=== PATIENT | female | born 1950 | race Caucasian/White ===

== ENCOUNTER 2019-04-15 11:28 | Observation (INO) ==
[2019-04-15] MEDS ORDERED: Aspirin 81 MG TAB.CHEW PO ONE (11:57)
--- NOTE | 2019-04-15 12:04 | Emergency Department Note ---
Disposition Clinical Impression: Pulmonary nodule, ST segment changes on electrocardiogram Chest pain Qualifiers: Chest pain type: unspecified Qualified Code(s): R07.9 - Chest pain, unspecified Disposition: Admitted As Inpatient Condition: Good Time of Disposition: 16:01 Chest Pain HPI - General Chief Complaint: ED Chest Pain Stated Complaint: CP sent by Dr. Beltran Time Seen by Provider: 04/15/19 11:37 Source: patient Mode of arrival: wheelchair Limitations: no limitations Vital Signs Reviewed: Yes Nursing Notes Reviewed: Yes - History of Present Illness HPI Narrative: Patient is a 68-year-old female with a past medical history of transverse myelitis/paraplegia who presents with chest pain for the past several weeks. She was seen by her primary care provider who noted that she had an abnormal EKG and was referred to Dr. Beltran die maker. She was informed by Dr. Beltran due to her symptoms, that she should come to the ER. Patient describes her chest pain as the left side of her chest, substernal, radiates up to her jaw. She denies any nausea, vomiting, fevers, chills. She denies any syncope or diaphoresis. Pain does not appear to worsen with deep breaths or with exertion. She has had pain sitting watching TV at rest. She has never had a heart attack in the past. She does have remote family members with history of heart attacks. She does not smoke, drink alcohol, or use recreational drugs. Severity scale (1-10): 4 - Related Data Home Medications Medication Instructions Recorded Confirmed Baclofen [Lioresal] 10 mg PO TID 09/27/15 04/15/19 Gabapentin [Neurontin] 600 mg PO TID 09/27/15 04/15/19 Ibuprofen 600 mg PO TID 09/27/15 04/15/19 Oxybutynin Chloride [Ditropan Xl] 5 mg PO TID 09/27/15 04/15/19 diazePAM [Valium] 5 mg PO TID 09/27/15 04/15/19 Ergocalciferol (VITAMIN D2) 50,000 units PO DAILY 04/15/19 04/15/19 Hydrochlorothiazide 12.5 mg PO DAILY 04/15/19 04/15/19 [place] 3 500 Softgel 1,000 mg PO DAILY 04/15/19 04/15/19 Allergies Allergy/AdvReac Type Severity Reaction Status Date / Time cephalexin [From Keflex] Allergy Hives Verified 04/04/15 16:45 All systems ED: reviewed and negative except as stated. Review of Systems: As Per HPI Constitutional: Denies: fever, chills, weakness Eyes: Denies: eye pain, eye discharge ENT ED: Denies: ear pain, throat pain, dental pain Cardiovascular: Reports: chest pain. Denies: palpitations, dyspnea on exertion Respiratory: Denies: cough, dyspnea, wheezes Gastrointestinal: Reports: abdominal pain. Denies: nausea, vomiting Genitourinary: Denies: urgency, dysuria, frequency Musculoskeletal: Denies: back pain, neck pain, joint swelling Integumentary: Denies: rash, abrasion, lesions Neurological: Denies: headache, weakness, numbness Psychiatric: Denies: anxiety, depression, suicidal thoughts Endocrine: Reports: fatigue. Denies: heat or cold intolerance, polydipsia Hematological/Lymphatic: Denies: easy bleeding, easy bruising, lymphadenopathy Chest Pain PMH - Past Medical History Medical history: Reports: thyroid disease, other Surgical history: Reports: hysterectomy Psychiatric history: Reports: no psych history - Social History Smoking Status: Never smoker Alcohol use: Reports: none Drug use: Reports: none Physical Exam GEN: Well-appearing, NAD, conversant. Paraplegic no motor or sensory below level of chest. HEAD: Normocephalic, atraumatic. EYES: PERRL, EOMI, anicteric. ENT: MMM. oropharynx without erythema or drainage. NECK: Supple. No LAD. No stiffness or restricted ROM. No tracheal deviation. HEART: Regular rate and regular rhythm, normal S1/S2, no m/r/g. LUNGS: CTAB, good air exchange bilaterally. No wheezing, rubs, or rhonchi. ABDO: Soft, tender, nondistended with active bowel sounds. Non peritonitic. : No suprapubic tenderness or CVA tenderness. BACK: No obvious stepoffs or deformities. EXT: Without cyanosis, clubbing or edema. SKIN: Warm and dry without any rash. NEURO: Grossly nonfocal. Alert and oriented, moving all 4 extremities. CN not formally tested but appear grossly intact. PSYCH: Normal affect, no depressed or anxious mood. - General Limitations: no limitations General appearance: alert Course Course Narrative: She was seen and examined. Vitals are stable within normal limits. Patient was started on chest pain workup with CBC, CMP, trips, coags, EKG, chest x-ray. D- dimer was also obtained. The abdomen and pelvis was obtained for possible abdominal pain, referred pain in the context of paralysis. - Reevaluation(s) Reevaluation #1: Patient was communicated to the hospitalist accepted for admission by Dr. Puckett. For further cardiac workup. Time: 16:01 Vital Signs Temperature 97.5 F L 04/15/19 11:40 Pulse Rate 69 04/15/19 11:40 Respiratory Rate 16 04/15/19 11:40 Blood Pressure 116/63 04/15/19 11:40 O2 Sat by Pulse Oximetry 97 04/15/19 11:40 Temperature 97.5 F L 04/15/19 11:46 Pulse Rate 68 04/15/19 15:47 Respiratory Rate 16 04/15/19 16:20 Blood Pressure 101/60 04/15/19 16:20 O2 Sat by Pulse Oximetry 99 04/15/19 15:47 Oxygen Delivery Oxygen Delivery Room Air Chest Pain - MDM Narrative Medical decision making narrative: Patient is a 68-year-old female with a history significant for paraplegia who presents with chest pain. Chest pain is concerning for a cardiac etiology. He was sent here by her die maker for abnormal EKG findings including elevations in V2/V3. There was a suspicion that the patient may have had a previous infarct. There were no acute changes in her EKG today, showed consistent findings with an EKG from a week ago. There was no troponin elevation. Given the patient's risk factors, patient was admitted to the hospital for further cardiac workup. There was a concern for PE, she did have an elevated d-dimer however CT angios of the chest was negative for PE. CT of the chest also did show a pulmonary nodule on the right lung that was communicated to the patient and she was made aware for future follow-up. CT of the abdomen and pelvis showed some stable nephrolithiasis. Otherwise no other acute abdominal pathology. Laboratory testing was otherwise unremarkable. Patient is currently stable and agreeable for admission. Patient was communicated to the hospitalist for further management and evaluation. - Medical Records Medical records reviewed: Yes I reviewed the patient's medical records. - Lab Data Lab results reviewed: Yes I reviewed the patient's lab results. Result diagrams: 04/15/19 11:58 04/15/19 11:58 Lab Results 04/15/19 04/15/19 04/15/19 Range/Units 11:58 11:58 11:58 WBC 7.5 (4.3-11.1) K/mcL RBC 4.63 (3.82-4.97) M/mcL Hgb 14.2 (11.5-15.4) g/dL Hct 44.9 (35.3-44.9) % MCV 97.0 (83.0-100.0) fL MCH 30.7 (28.0-33.3) pg MCHC 31.6 (31.6-35.5) g/dL RDW 13.1 (11.5-14.5) % Plt Count 308 (140-400) K/mcL MPV 9.3 L (9.4-12.4) fL Immature Gran % 0.1 (0-4) % Seg Neutrophils % 59.8 % Lymphocytes % 25.8 % Monocytes % 8.8 % Eosinophils % 4.7 % Basophils % 0.8 % Neutrophils # 4.5 (1.6-8.9) K/mcL Lymphocytes # 1.9 (0.6-4.6) K/mcL Monocytes # 0.7 (0.0-1.3) K/mcL Eosinophils # 0.4 (0.0-0.6) K/mcL Basophils # 0.1 (0.0-0.2) K/mcL PT 10.9 (9.4-12.1) Seconds INR 1.0 APTT 32.4 (26.0-36.0) Seconds D-Dimer 1089 H (0-500) ng/mLFEU Sodium 140 (136-145) mEq/L Potassium 3.7 (3.5-5.1) mEq/L Chloride 105 (98-107) mEq/L Carbon Dioxide 32 H (23-29) mEq/L BUN 12 (8-23) mg/dL Creatinine 0.44 L (0.60-1.20) mg/dL Est GFR ( Amer) > 60 (> 60) Est GFR (Non-Af Amer) > 60 (> 60) BUN/Creatinine Ratio 27 H (6-26) Glucose 92 (70-105) mg/dL Calculated Osmolality 289 (280-300) Calcium 9.3 (8.6-10.3) mg/dL Troponin I < 0.03 (< 0.04) ng/mL - Radiology Data Radiology results reviewed: Yes I reviewed the patient's radiology results. - EKG Data EKG attestation: Yes I reviewed and interpreted this EKG. EKG results narrative: EEG obtained at 1136. My interpretation EKG shows normal sinus rhythm, normal intervals, normal axis, questionable ST elevations in V1 and V2. Consistent with prior from 04/01/2019. Also with some ST depressions in lateral leads including lead II. Heart Score - Score History: Moderately Suspicious EKG: Non Specific repolarisation Disturbance Age: Greater than 65 Risk Factors: No risk factors known Troponin: Less than normal limit HEART Score Total: 4 Attestation Statement - Attestation Attestation: I, Fredis Madera DO, examined this patient [id number] and my medical decision-making was reviewed with Bud Graves MD, Resident Physician. I agree with the documented findings, disposition and treatment plan as described except to the extent set forth below. I personally supervised and was present for the curry/critical portions of the procedures completed by the resident documented below. Please see my progress notes for details.
--- NOTE | 2019-04-15 12:12 | Emergency Department Note ---
Disposition Clinical Impression: Chest pain, Pulmonary nodule, ST segment changes on electrocardiogram Disposition: Admitted As Inpatient Condition: Fair Referrals: Anjana Amos, SHOEMAKER APPRENTICE [Primary Care Provider] - Forms: ED Satisfaction Letter Time of Disposition: 15:58 General Adult HPI - General Chief complaint: ED Chest Pain Stated complaint: CP sent by Dr. Beltran Time Seen by Provider: 04/15/19 11:37 Source: patient Mode of arrival: wheelchair Limitations: no limitations - History of Present Illness Pain Scale: 4 - Related Data Home Medications Medication Instructions Recorded Confirmed Baclofen [Lioresal] 10 mg PO TID 09/27/15 04/15/19 Gabapentin [Neurontin] 600 mg PO TID 09/27/15 04/15/19 Ibuprofen 600 mg PO TID 09/27/15 04/15/19 Oxybutynin Chloride [Ditropan Xl] 5 mg PO TID 09/27/15 04/15/19 diazePAM [Valium] 5 mg PO TID 09/27/15 04/15/19 Ergocalciferol (VITAMIN D2) 50,000 units PO DAILY 04/15/19 04/15/19 Hydrochlorothiazide 12.5 mg PO DAILY 04/15/19 04/15/19 [place] 3 500 Softgel 1,000 mg PO DAILY 04/15/19 04/15/19 Allergies Allergy/AdvReac Type Severity Reaction Status Date / Time cephalexin [From Keflex] Allergy Hives Verified 04/04/15 16:45 Constitutional: Denies: fever, chills, weakness Eyes: Denies: eye pain, eye discharge ENT ED: Denies: ear pain, throat pain, dental pain Cardiovascular: Reports: chest pain. Denies: palpitations, dyspnea on exertion Respiratory: Denies: cough, dyspnea, wheezes Gastrointestinal: Reports: abdominal pain. Denies: nausea, vomiting Genitourinary: Denies: urgency, dysuria, frequency Musculoskeletal: Denies: back pain, neck pain, joint swelling Integumentary: Denies: rash, abrasion, lesions Neurological: Denies: headache, weakness, numbness Psychiatric: Denies: anxiety, depression, suicidal thoughts Endocrine: Reports: fatigue. Denies: heat or cold intolerance, polydipsia Hematological/Lymphatic: Denies: easy bleeding, easy bruising, lymphadenopathy Past Medical History - Past Medical History Medical history: Reports: thyroid disease, other Surgical history: Reports: hysterectomy Psychiatric history: Reports: no psych history - Social History Smoking Status: Never smoker Smokeless Tobacco Status: No Alcohol use: Reports: none Drug use: Reports: none Physical Exam - General Limitations: no limitations General appearance: alert Course Vital Signs Temperature 97.5 F L 04/15/19 11:40 Pulse Rate 69 04/15/19 11:40 Respiratory Rate 16 04/15/19 11:40 Blood Pressure 116/63 04/15/19 11:40 O2 Sat by Pulse Oximetry 97 04/15/19 11:40 Temperature 97.5 F L 04/15/19 11:46 Pulse Rate 68 04/15/19 15:47 Respiratory Rate 18 04/15/19 15:47 Blood Pressure 114/59 04/15/19 15:47 O2 Sat by Pulse Oximetry 99 04/15/19 15:47 Oxygen Delivery Oxygen Delivery Room Air Medical Decision Making - Lab Data Result diagrams: 04/15/19 11:58 04/15/19 11:58 Lab Results 04/15/19 04/15/19 04/15/19 Range/Units 11:58 11:58 11:58 WBC 7.5 (4.3-11.1) K/mcL RBC 4.63 (3.82-4.97) M/mcL Hgb 14.2 (11.5-15.4) g/dL Hct 44.9 (35.3-44.9) % MCV 97.0 (83.0-100.0) fL MCH 30.7 (28.0-33.3) pg MCHC 31.6 (31.6-35.5) g/dL RDW 13.1 (11.5-14.5) % Plt Count 308 (140-400) K/mcL MPV 9.3 L (9.4-12.4) fL Immature Gran % 0.1 (0-4) % Seg Neutrophils % 59.8 % Lymphocytes % 25.8 % Monocytes % 8.8 % Eosinophils % 4.7 % Basophils % 0.8 % Neutrophils # 4.5 (1.6-8.9) K/mcL Lymphocytes # 1.9 (0.6-4.6) K/mcL Monocytes # 0.7 (0.0-1.3) K/mcL Eosinophils # 0.4 (0.0-0.6) K/mcL Basophils # 0.1 (0.0-0.2) K/mcL PT 10.9 (9.4-12.1) Seconds INR 1.0 APTT 32.4 (26.0-36.0) Seconds D-Dimer 1089 H (0-500) ng/mLFEU Sodium 140 (136-145) mEq/L Potassium 3.7 (3.5-5.1) mEq/L Chloride 105 (98-107) mEq/L Carbon Dioxide 32 H (23-29) mEq/L BUN 12 (8-23) mg/dL Creatinine 0.44 L (0.60-1.20) mg/dL Est GFR ( Amer) > 60 (> 60) Est GFR (Non-Af Amer) > 60 (> 60) BUN/Creatinine Ratio 27 H (6-26) Glucose 92 (70-105) mg/dL Calculated Osmolality 289 (280-300) Calcium 9.3 (8.6-10.3) mg/dL Troponin I < 0.03 (< 0.04) ng/mL Attestation Statement - Attestation Attestation: I, Fredis Madera DO, examined this patient [id number] and my medical decision-making was reviewed with Bud Graves MD, Resident Physician. I agree with the documented findings, disposition and treatment plan as described except to the extent set forth below. I personally supervised and was present for the curry/critical portions of the procedures completed by the resident documented below. Please see my progress notes for details. 68-year-old female presents emergency room from the cardiology office here today. Patient has had long-standing intermittent chest discomfort and pain. She is a paraplegic from the mid chest down. Patient had this happen secondary to spinal related issues. Patient does have chronic constipation and does have to catheterize herself daily. Denies any fevers or chills. Currently denying nausea vomiting or diarrhea. She has not had a headache or vision change. Currently denying shortness of breath. She does have slight tightness across her chest wall but otherwise is denying any other symptoms or complaints. Patient was seen and evaluated today by cardiology and there was some concern for EKG changes at this time. They recommended that she come to the emergency room for evaluation. EKG will be reviewed here in emergency department. Patient will be provided with nitroglycerin to see if this helps with her symptoms. She also be given an aspirin. Chest x-ray EKG CBC chemistry electrolytes urinalysis along with CT imaging of the abdomen will be completed during this treatment course. Troponin and BNP and d-dimer will also be added on. Disposition will most likely be admission the hospital once a full workup and treatment course I been established. See detailed documentation the physical exam, medical intervention, medical decision-making and disposition the resident physician's note. EKG was reviewed by myself in documented in the r vladimirdent physician's note. No critical care provider the patient's treatment course at this time. 1500 Patient's labs are unremarkable. Patient did have an elevated d-dimer. CT angiography of the chest and the abdomen were completed. Patient does have a nodule in the right upper lobe of the lung. She will be informed of these findings. Otherwise patient is clinically stable. She will be admitted for what appears to be EKG changes of unknown etiology. Patient is otherwise in no distress. 1548 Patient was discussed with the hospitalist Dr. Puckett. Detailed review the presentation symptoms medical intervention were discussed at length. Patient is otherwise clinically stable and does not require any further workup or intervention at this time. Patient will be monitored here in the emergency department until the admission process is completed.
[2019-04-15 12:37] LABS: Basophils # 0.1 K/mcL (0.0-0.2); Basophils % 0.8 %; Eosinophils # 0.4 K/mcL (0.0-0.6); Eosinophils % 4.7 %; Hematocrit 44.9 % (35.3-44.9); Hemoglobin 14.2 g/dL (11.5-15.4); Immature Granulocytes % 0.1 % (0-4); Lymphocytes # 1.9 K/mcL (0.6-4.6); Lymphocytes % 25.8 %; Mean Corpuscular HGB Conc 31.6 g/dL (31.6-35.5); Mean Corpuscular Hemoglobin 30.7 pg (28.0-33.3); Mean Platelet Volume 9.3 fL (9.4-12.4); Monocytes # 0.7 K/mcL (0.0-1.3); Monocytes % 8.8 %; Neutrophils # 4.5 K/mcL (1.6-8.9); Platelet Count 308 K/mcL (140-400); Red Blood Count 4.63 M/mcL (3.82-4.97); Red Cell Distribution Width 13.1 % (11.5-14.5); Segmented Neutrophils % 59.8 %; White Blood Count 7.5 K/mcL (4.3-11.1)
[2019-04-15 12:45] LABS: Prothrombin Time 10.9 Seconds (9.4-12.1)
[2019-04-15 12:47] LABS: Activated Partial Thrombo Time 32.4 Seconds (26.0-36.0)
[2019-04-15 12:56] LABS: BUN/Creatinine Ratio 27 (6-26); Blood Urea Nitrogen 12 mg/dL (8-23); Calcium 9.3 mg/dL (8.6-10.3); Carbon Dioxide 32 mEq/L (23-29); Chloride 105 mEq/L (98-107); Glucose 92 mg/dL (70-105); Osmolality,Calculated 289 (280-300); Potassium 3.7 mEq/L (3.5-5.1); Sodium 140 mEq/L (136-145); Troponin I < 0.03 ng/mL (< 0.04); eGFR For African Americans > 60 (> 60); eGFR For Non-African Americans > 60 (> 60)
[2019-04-15] MEDS ORDERED: Isovue-370 500 ML BOTTLE IVP ONE (13:27)
[2019-04-15] MEDS ORDERED: 0.9 % Sodium Chloride 1,000 ML IVC STA (16:11)
[2019-04-15] MEDS: Nitroglycerin 0.4 MG TAB.SUBL SL SCH (16:14)
[2019-04-15] MEDS ORDERED: *HR* HYDROcodone/Acet 5/325 mg TABLET PO PRN (16:27)
[2019-04-15] MEDS ORDERED: Naloxone 0.4 MG/ML INJ IVP PRN (16:27)
[2019-04-15] MEDS ORDERED: Ondansetron 4 MG/2 ML VIAL IVP PRN (16:27)
[2019-04-15] MEDS ORDERED: Nitroglycerin 0.4 MG TAB.SUBL SL PRN (16:30)
[2019-04-15] MEDS ORDERED: diazePAM 5 MG TABLET PO PRN (16:33)
--- NOTE | 2019-04-15 18:28 | Internal Med History&Physical ---
Date of Encounter: 04/15/19 Time of Encounter: 18:19 Internal Medicine - H&P: HPI Chief complaint: ekg changes Plans for Post Hospital Care: Home History of present illness: Ms. Denny is a 68 year old female PMH transverse myelitis, paraplegic with neurogenic bladder, thyroid nodule. Patient was sent to the ED from the wet mixer office due to abnormal ekg. Patient reported about 3 weeks ago she went to an outside facility and had an EKG done which was abnormal and was referred to see a wet mixer. Today morning patient reported she was having nagging restro-sternal 4/10 chest discomfort radiating to her jaw, lasting less than 5 minutes. denies shortness of breath, nausea, abdominal pain or vomiting. Patient also reported she feels she is getting tired with minimal activity now. Today after being evaluated at the wet mixer office patient was sent to the ED for evaluation due ton abnormal ekg. Past Med Surg Social Fam HX - Past Medical History Medical history: thyroid disease, other Additional medical history: PARALYSIS Psychiatric history: no psych history - Past Surgical History Surgical History: hysterectomy Additional surgical history: HEMRROID SURERY - Social History Smoking Status: Never smoker Smokeless Tobacco Status: No Alcohol use: none Drug use: none - Family History Mother Living Status: Hx Family Cardiac Disorders: Yes Father Living Status: Age at : 44 Mother Sister Living Status: Hx Family Respiratory Disorders: Yes Hx Family Cancer: Yes Internal Medicine - H&P: Meds Baclofen [Lioresal] 10 mg PO TID 09/27/15 [History] Gabapentin [Neurontin] 600 mg PO TID 09/27/15 [History] Ibuprofen 600 mg PO TID 09/27/15 [History] Oxybutynin Chloride [Ditropan Xl] 5 mg PO TID 09/27/15 [History] diazePAM [Valium] 5 mg PO TID 09/27/15 [History] Ergocalciferol (VITAMIN D2) 50,000 units PO DAILY 04/15/19 [History] Hydrochlorothiazide 12.5 mg PO DAILY 04/15/19 [History] [place] 3 500 Softgel 1,000 mg PO DAILY 04/15/19 [History] Allergy/AdvReac Type Severity Reaction Status Date / Time cephalexin [From Keflex] Allergy Hives Verified 04/04/15 16:45 All Systems PM: A 10-system review of systems was performed and is negative for pertinent findings except as documented above in the HPI. - Constitutional Constitutional: weakness, no chills, no fever(s), no malaise - Cardiovascular Cardiovascular ROS IM: chest pain, dyspnea, no edema, no lightheadedness, no paroxysmal nocturnal dyspnea - Respiratory Respiratory: no dyspnea - Gastrointestinal Gastrointestinal: no abdominal pain, no nausea, no vomiting - Genitourinary Genitourinary: no dysuria - Musculoskeletal Musculoskeletal ROS IM: no back pain - Psychiatric Psychiatric: no anxiety, no irritability - Endocrine Endocrine IM: no cold intolerance, no excessive sweating - Hematologic/Lymphatic Hematologic/Lymphatic: no lymphadenopathy - Allergic/Immunologic Allergic/Immunologic: no GI upset with certain foods - Constitutional Vitals: Temp Pulse Resp BP Pulse Ox 97.5 F L 68 16 101/60 99 04/15/19 11:46 04/15/19 15:47 04/15/19 16:20 04/15/19 16:20 04/15/19 15:47 Exam: Vitals: reviewed General: Alert and oriented x4. In no distress Cardiovascular: RRR, normal S1 & S2, no rubs, murmurs or gallops. Lungs: CTA b/l, no wheezes or crackles. Abdomen: Soft, non-tender, no rigidity. Extremities: contracted lower ext. no sacral decubiti seen on evaluation. Neurological: No focal neurologic abnormalities Pulses:Carotid and radial pulses normal +2. Rest of the physical exam is non contributory Internal Med - H&P Results - Labs CBC & Chem 7: 04/15/19 11:58 04/15/19 11:58 Labs: Short CBC 04/15/19 Range/Units 11:58 WBC 7.5 (4.3-11.1) K/mcL Hgb 14.2 (11.5-15.4) g/dL Hct 44.9 (35.3-44.9) % Plt Count 308 (140-400) K/mcL Neutrophils # 4.5 (1.6-8.9) K/mcL BMP 04/15/19 11:58 Sodium 140 Potassium 3.7 Chloride 105 Carbon Dioxide 32 H BUN 12 Creatinine 0.44 L Glucose 92 Calcium 9.3 Cardiac Enzymes 04/15/19 Range/Units 11:58 Troponin I < 0.03 (< 0.04) ng/mL - Impressions ITS Impressions Chest X-Ray 04/15/19 12:08 IMPRESSION: No evidence for acute cardiopulmonary process. D/ / Tarun Ng MD / Tarun Ng MD Interpreting Provider: Tarun Ng MD Abdomen/Pelvis CT 04/15/19 13:21 IMPRESSION: 1. Left nephrolithiasis but no evidence of obstructive uropathy. 2. No evidence of acute bowel obstruction perforation or thickening. No evidence of acute appendicitis or diverticulitis. 3. Decubitus ulcer in the pelvis which appears worse compared with the previous evaluation in the region of the sacrum with soft tissue inflammatory changes extending all the way to the sacral bone. This has a worse appearance compared with the previous evaluation although, no evidence of bony destructive changes of the sacrum itself. Bilateral hip changes as described. D/ / 04/15/2019 13:56:03 Ragini Bloom MD / bcaer Interpreting Provider: Ragini Bloom MD Chest CTA 04/15/19 14:56 IMPRESSION: No central or segmental pulmonary embolus. No acute pulmonary process. Left thyroid lobe nodules have been previously evaluated by sonography. Nonspecific area of nodularity within the right upper lobe with pleural thickening measuring at least 9 mm. Recommend follow up based on guidelines below. RECOMMENDATIONS: Fleischner Society guidelines for follow-up and management of incidentally detected pulmonary nodules: Single Solid Nodule: Nodule size greater than 8 mm In a low-risk patient, consider CT at 3 months, PET/CT, or tissue sampling. In a high-risk patient, consider CT at 3 months, PET/CT, or tissue sampling. - Low risk patients include individuals with minimal or absent history of smoking and other known risk factors. - High risk patients include individuals with a history or smoking or known risk factors. Radiology 2017 http://pubs.rsna.org/doi/full/10.1148/radiol.4392154985 D/ / 04/15/2019 15:55:22 Ghanshyam Forrest MD / lgray Interpreting Provider: Ghanshyam Forrest MD - Diagnostic Studies Chest x-ray Status: image reviewed by me (no abnormalities) - Assessment and Plan (1) Abnormal electrocardiogram [ECG] [EKG] Current Visit: Yes Status: Acute Assessment and plan: patient with non-specific ST segment changes on EKG. reported nagging chest pain today morning and dysnea with minimal exertion. Plan: Serial troponin Nitroglycerin 0.5 sublingual 3 every 15 minute when necessary Aspirin 81 mg by mouth daily TTE ordered to evaluate for wall motion or valvular abnormalities pharm stress test ordered Cardiology consulted, recommendations appreciated. (2) Neurogenic bladder Current Visit: Yes Status: Chronic Assessment and plan: secondary to transverse myelitis. will continue self catheterization every 6 hours. Continue baclofen 10 mg by mouth 3 times a day. (3) Transverse myelitis Current Visit: Yes Status: Chronic Assessment and plan: Patient reported being diagnosed with transverse myelitis 36 years ago. (4) DVT prophylaxis Current Visit: Yes Status: Acute Assessment and plan: Started on heparin subcutaneous. (5) Abnormal CT of the abdomen Current Visit: Yes Status: Acute Assessment and plan: CT/CT abd pelvis wo no iv no oral IMPRESSION: 1. Left nephrolithiasis but no evidence of obstructive uropathy. 2. No evidence of acute bowel obstruction perforation or thickening. No evidence of acute appendicitis or diverticulitis. 3. Decubitus ulcer in the pelvis which appears worse compared with the previous evaluation in the region of the sacrum with soft tissue inflammatory changes extending all the way to the sacral bone. This has a worse appearance compared with the previous evaluation although, no evidence of bony destructive changes of the sacrum itself. Bilateral hip changes as described. I have evaluated the patient, the skin on the sacral area is intact, non-tender to touch, erythema or lesion. - Time Spent With Patient Total time spent is greater than 50% in coordination of care (as documented) at patient's floor/unit and/or counseling patient: Greater than 35 minutes (50)
[2019-04-15] MEDS: Gabapentin 300 MG CAPSULE PO SCH (21:54)
[2019-04-15] MEDS: Baclofen 10 MG TABLET PO SCH (21:54)
[2019-04-15] MEDS: *HR* Heparin 5,000 UNIT/ML VIAL SQ SCH (22:35)
[2019-04-16 01:57] LABS: Basophils # 0.1 K/mcL (0.0-0.2); Basophils % 0.7 %; Eosinophils # 0.4 K/mcL (0.0-0.6); Eosinophils % 5.4 %; Hematocrit 40.5 % (35.3-44.9); Hemoglobin 12.9 g/dL (11.5-15.4); Immature Granulocytes % 0.1 % (0-4); Lymphocytes # 2.4 K/mcL (0.6-4.6); Lymphocytes % 32.3 %; Mean Corpuscular HGB Conc 31.9 g/dL (31.6-35.5); Mean Corpuscular Hemoglobin 30.7 pg (28.0-33.3); Mean Corpuscular Volume 96.4 fL (83.0-100.0); Mean Platelet Volume 9.5 fL (9.4-12.4); Monocytes # 0.7 K/mcL (0.0-1.3); Monocytes % 8.9 %; Neutrophils # 3.8 K/mcL (1.6-8.9); Platelet Count 290 K/mcL (140-400); Red Cell Distribution Width 13.2 % (11.5-14.5); Segmented Neutrophils % 52.6 %; White Blood Count 7.3 K/mcL (4.3-11.1)
[2019-04-16 02:23] LABS: Alanine Aminotransferase 14 Units/L (7-52); Albumin 3.4 g/dL (3.5-5.7); Albumin/Globulin Ratio 1.4 (1.1-2.2); Alkaline Phosphatase 73 Units/L (34-104); Aspartate Amino Transferase 15 Units/L (13-39); BUN/Creatinine Ratio 32 (6-26); Bilirubin,Indirect 0.3 mg/dL (0.0-1.2); Bilirubin,Total 0.3 mg/dL (0.3-1.0); Blood Urea Nitrogen 15 mg/dL (8-23); C-Reactive Protein 7 mg/L (Less than 10); Calcium 8.6 mg/dL (8.6-10.3); Carbon Dioxide 26 mEq/L (23-29); Chloride 105 mEq/L (98-107); Chol/HDL Ratio 4.2 (0-4.9); Cholesterol 178 mg/dL (< 200); Globulin 2.4 g/dL (2.4-3.5); Glucose 90 mg/dL (70-105); HDL Cholesterol 42 mg/dL (40-59); LDL Cholesterol,Calculated 105 mg/dL (0-99); Magnesium 2.2 mg/dL (1.6-2.6); Osmolality,Calculated 288 (280-300); Phosphorous 4.2 mg/dL (2.7-4.5); Potassium 3.9 mEq/L (3.5-5.1); Sodium 139 mEq/L (136-145); Total Protein 5.8 g/dL (6.4-8.9); Triglycerides 154 mg/dL (< 150); eGFR For African Americans > 60 (> 60); eGFR For Non-African Americans > 60 (> 60)
[2019-04-16] MEDS: *HR* Heparin 5,000 UNIT/ML VIAL SQ SCH ×3 (06:19→22:04)
[2019-04-16 06:27] LABS: Troponin I < 0.03 ng/mL (< 0.04)
[2019-04-16] MEDS ORDERED: Regadenoson 0.4 MG/5 ML SYRINGE IVP ONE (06:27)
[2019-04-16] MEDS ORDERED: Aspirin Enteric Coated 81 MG Tablet PO SCH (09:00)
[2019-04-16] MEDS: Gabapentin 300 MG CAPSULE PO SCH ×3 (11:07→20:21)
[2019-04-16] MEDS: Baclofen 10 MG TABLET PO SCH ×3 (11:07→20:22)
--- NOTE | 2019-04-16 14:54 | Internal Med Progress Note ---
Hospitalist Progress Note - Encounter Date of Encounter: 04/16/19 Time of Encounter: 14:52 - Subjective Interval History: I have seen and evaluated the patient at bedside. patient reported feeling well today, but report decrease urinary output, denies chest pain, nausea or vomiting. - Exam Vitals: Temp Pulse Resp BP Pulse Ox 98.0 F 84 15 128/71 97 04/16/19 07:35 04/16/19 07:35 04/16/19 07:35 04/16/19 07:35 04/16/19 07:35 Exam: Vitals: Reviewed General: Alert and oriented x4. In no distress Cardiovascular: RRR, normal S1 & S2, no rubs, murmurs or gallops. Lungs: CTA b/l, no wheezes or crackles. Abdomen: Soft, non-tender, no rigidity. Extremities: contracted lower ext. no sacral decubiti seen on evaluation. no edema Neurological: No focal neurologic abnormalities Rest of the physical exam is non contributory - Assessment and Plan (1) Abnormal electrocardiogram [ECG] [EKG] Current Visit: Yes Status: Acute Assessment and Plan: Patient denies chest pain, nausea or vomiting. EV/EV echocardiogram Impressions: LVEF 65%. Mild left ventricular diastolic dysfunction. Normal right ventricular structure and function. No significant valvular dysfunction. No pulmonary hypertension. Plan patient had first part of the stress test today. scheduled for 2nd part tomorrow morning npo at midnight on aspirin 81mg/PO daily started on gentle IV hydration, patient reported decreased urinary output today (2) Neurogenic bladder Current Visit: Yes Status: Chronic Assessment and Plan: patient requested to keep torre catheter inserted while in the hospital. on baclofen and valium. (3) Transverse myelitis Current Visit: Yes Status: Chronic Assessment and Plan: Patient reported being diagnosed with transverse myelitis 36 years ago. PT/OT ordered (4) Abnormal CT of the abdomen Current Visit: Yes Status: Acute Assessment and Plan: discuss CT finding with radiologist. skin intact. ESR and CRP within normal, skin non-tender to touch, no erythema. Patient recommended to follow up with her wound doctor as outpatient for close observation. DVT Prophylaxis: ON heparin subq - Summary of Assessment and Plan Summary of Assessment and Plan: Patient to remain in the hospital pending second part of the stress test. - Time Spent with Patient Total time spent is greater than 50% in coordination of care (as documented) at patient's floor/unit and/or counseling patient: Greater than 35 minutes (45) Plan of Care Discussed with: patient (her daughter and the nurse.) Internal Medicine: Result - Labs CBC & Chem 7: 04/16/19 01:08 04/16/19 01:08 Labs: Short CBC 04/16/19 Range/Units 01:08 WBC 7.3 (4.3-11.1) K/mcL Hgb 12.9 (11.5-15.4) g/dL Hct 40.5 (35.3-44.9) % Plt Count 290 (140-400) K/mcL Neutrophils # 3.8 (1.6-8.9) K/mcL BMP 04/16/19 01:08 Sodium 139 Potassium 3.9 Chloride 105 Carbon Dioxide 26 BUN 15 Creatinine 0.47 L Glucose 90 Calcium 8.6 Cardiac Enzymes 04/16/19 Range/Units 01:08 Troponin I < 0.03 (< 0.04) ng/mL Liver Function 04/16/19 Range/Units 01:08 Total Bilirubin 0.3 (0.3-1.0) mg/dL Direct Bilirubin 0.0 (0.0-0.2) mg/dL AST 15 (13-39) Units/L ALT 14 (7-52) Units/L Alkaline Phosphatase 73 (34-104) Units/L Albumin 3.4 L (3.5-5.7) g/dL - ABG Interpretation ABG results: PT/INR, D-dimer PT 10.9 Seconds (9.4-12.1) 04/15/19 11:58 D-Dimer 1089 ng/mLFEU (0-500) H 04/15/19 11:58 - Impressions Impressions Chest CTA 04/15/19 14:56 IMPRESSION: No central or segmental pulmonary embolus. No acute pulmonary process. Left thyroid lobe nodules have been previously evaluated by sonography. Nonspecific area of nodularity within the right upper lobe with pleural thickening measuring at least 9 mm. Recommend follow up based on guidelines below. RECOMMENDATIONS: Fleischner Society guidelines for follow-up and management of incidentally detected pulmonary nodules: Single Solid Nodule: Nodule size greater than 8 mm In a low-risk patient, consider CT at 3 months, PET/CT, or tissue sampling. In a high-risk patient, consider CT at 3 months, PET/CT, or tissue sampling. - Low risk patients include individuals with minimal or absent history of smoking and other known risk factors. - High risk patients include individuals with a history or smoking or known risk factors. Radiology 2017 http://pubs.rsna.org/doi/full/10.1148/radiol.7828687956 D/ / 04/15/2019 15:55:22 Ghanshyam Forrest MD / mary Interpreting Provider: Ghanshyam Forrest MD Echocardiogram 04/16/19 09:14 Impressions: LVEF 65%. Mild left ventricular diastolic dysfunction. Normal right ventricular structure and function. No significant valvular dysfunction. No pulmonary hypertension. Left Ventricular Wall Motion: Rest Echo Findings All wall segments showed normal motion. Findings: Study Quality * Technically adequate exam. ECG Findings * Normal sinus rhythm. Left Ventricle * LVEF 65%. * Mild left ventricular diastolic dysfunction. * LV chamber size and wall thickness are normal. Right Ventricle * Normal right ventricular structure and function. Left Atrium * Mildly dilated left atrium. Right Atrium * Normal right atrial size. Aortic Valve * No aortic regurgitation. * Aortic valve not well visualized. * No aortic stenosis. Mitral Valve * No mitral regurgitation. * Normal mitral valve structure. * No mitral stenosis. Tricuspid Valve * Tricuspid valve not well visualized. * Estimated RA pressure is 3 mmHg. Pulmonic Valve * Pulmonic valve is not well visualized. * No pulmonic stenosis. * No pulmonic regurgitation. Pulmonary Artery * Pulmonary artery not well visualized. Aorta * Normally sized aortic root. Pericardium * There is no pericardial effusion present. Interatrial Septum * No evidence of PFO by color Doppler. IVC * Normal IVC dimensions and inspiratory collapse. Consult Discharge Plan - Plan Referrals: Anjana Amos, [employer] [Primary Care Provider] - 04/21/19 11:00 am
[2019-04-16] MEDS: Ringers Solution, Lactated 1,000 ML IVC SCH (16:29)
[2019-04-16] MEDS ORDERED: Albuterol 2.5 MG/3 ML NEBULIZER IH PRN (16:39)
[2019-04-17] MEDS: Ringers Solution, Lactated 1,000 ML IVC SCH (02:08)
[2019-04-17] MEDS: *HR* Heparin 5,000 UNIT/ML VIAL SQ SCH (06:05)
[2019-04-17 06:57] VITALS: BP 111/55
[2019-04-17] MEDS: Baclofen 10 MG TABLET PO SCH (08:10)
--- NOTE | 2019-04-17 09:23 | Discharge Summary ---
Date of Encounter: 04/17/19 Time of Encounter: 09:20 - Discharge Diagnosis (1) Abnormal electrocardiogram [ECG] [EKG] Priority: Primary Status: Acute (2) Neurogenic bladder Priority: Secondary Status: Chronic (3) Transverse myelitis Priority: Secondary Status: Chronic (4) Abnormal CT of the abdomen Priority: Secondary Status: Acute Hospital course: Ms. Denny is a 68 year old female PMH transverse myelitis, paraplegic with neurogenic bladder, thyroid nodule. Patient was sent to the ED from the [facility] office due to abnormal ekg. Patient reported she was having nagging restro-sternal 4/10 chest discomfort radiating to her jaw, lasting less than 5 minutes. admitted to the hospital due to abnormal EKG. A pharmacological stress test done: Perfusion imaging was negative for ischemia or infarct. Pharmacologic stress ECG is negative for ischemia at level of heart rate achieved. EV/EV echocardiogram Impressions: LVEF 65%. Mild left ventricular diastolic dysfunction. Normal right ventricular structure and function. No significant valvular dysfunction. No pulmonary hypertension. Serial trops wnl. CT/CT abd pelvis wo no iv no oral IMPRESSION: 1. Left nephrolithiasis but no evidence of obstructive uropathy. 2. No evidence of acute bowel obstruction perforation or thickening. No evidence of acute appendicitis or diverticulitis. 3. Decubitus ulcer in the pelvis which appears worse compared with the previous evaluation in the region of the sacrum with soft tissue inflammatory changes extending all the way to the sacral bone. This has a worse appearance compared with the previous evaluation although, no evidence of bony destructive changes of the sacrum itself. patient's skin is intact, ESR, CRP wnl. Patient recommended to follow up with Dr. Stack her wound care doctor as outpatient. Patient clinically is stable to be discharged home. CT/CT angio chest IMPRESSION: No central or segmental pulmonary embolus. No acute pulmonary process. Left thyroid lobe nodules have been previously evaluated by sonography. Nonspecific area of nodularity within the right upper lobe with pleural thickening measuring at least 9 mm. Recommend follow up based on guidelines below. Patient denies hx of tobacco abuse, recommended to f/u with pulm as outpatient. - Time Spent with Patient Total time spent providing and/or coordinating discharge services: Time spent: Greater than 30 minutes (45) - Discharge Medications Prescriptions: Continued Baclofen [Lioresal] 10 mg PO TID diazePAM [Valium] 5 mg PO TID PRN PRN Reason: Anxiety Ibuprofen [Ibu] 600 mg PO TID PRN PRN Reason: Pain [place]-3/Dha/Epa/Fish Oil [[facility] Fish Oil 1,000 mg Softgel] 1 cap PO DAILY hydroCHLOROthiazide [Hydrochlorothiazide] 12.5 mg PO DAILY PRN PRN Reason: Edema Cholecalciferol (Vitamin D3) [Vitamin D3] 50,000 unit PO FR Albuterol Sulfate [Ventolin Hfa] 2 puff IH Q4-6H PRN PRN Reason: Shortness Of Breath Gabapentin 600 mg PO TID Omeprazole 20 mg PO DAILY PRN PRN Reason: Heartburn Oxybutynin [Ditropan] 5 mg PO TID Home Medications: Baclofen [Lioresal] 10 mg PO TID 09/27/15 [History] Ibuprofen [Ibu] 600 mg PO TID PRN 09/27/15 [History] diazePAM [Valium] 5 mg PO TID PRN 09/27/15 [History] Albuterol Sulfate [Ventolin Hfa] 2 puff IH Q4-6H PRN 04/15/19 [History] Cholecalciferol (Vitamin D3) [Vitamin D3] 50,000 unit PO FR 04/15/19 [History] Gabapentin 600 mg PO TID 04/15/19 [History] [place]-3/Dha/Epa/Fish Oil [[facility] Fish Oil 1,000 mg Softgel] 1 cap PO DAILY 04/15/19 [History] Omeprazole 20 mg PO DAILY PRN 04/15/19 [History] Oxybutynin [Ditropan] 5 mg PO TID 04/15/19 [History] hydroCHLOROthiazide [Hydrochlorothiazide] 12.5 mg PO DAILY PRN 04/15/19 [History] Allergies/Adverse Reactions: Allergy/AdvReac Type Severity Reaction Status Date / Time cephalexin [From Keflex] Allergy Hives Verified 04/04/15 16:45 Date of admission: 04/15/19 16:09 Primary care physician: Anjana Amos CNP Consults: 04/16/19 15:04 Consult to Physical Therapy [CONS] Routine Comment: Evaluate, develop and implement POC Reason for Consult: Paraplejic Does patient have active BEDREST order?: No Is patient medically & hemodynamically stable?: Yes 04/16/19 15:05 Consult to Occupational Therapy [CONS] Routine Comment: Evaluate, develop and implement POC Reason for Consult: paraplejic Does patient have active BEDREST order?: No Is patient medically & hemodynamically stable?: Yes - Constitutional Vitals: Temp Pulse Resp BP Pulse Ox 98.3 F 53 16 111/55 92 04/17/19 06:52 04/17/19 06:52 04/17/19 06:52 04/17/19 06:52 04/17/19 06:52 Exam: Vitals: Reviewed General: Alert and oriented x4. In no distress Cardiovascular: RRR, normal S1 & S2, no rubs, murmurs or gallops. Lungs: CTA b/l, no wheezes or crackles. Abdomen: Soft, non-tender, no rigidity. Extremities: contracted lower ext. no sacral decubiti seen on evaluation. no edema Neurological: No focal neurologic abnormalities Rest of the physical exam is non contributory - Patient Status Disposition: Home, Self-Care Condition: Good Functional capacity at discharge: bed bound Overall status at discharge: patient is back to baseline - Discharge Instructions Follow Up With: Anjana Amos CNP [Primary Care Provider] - 04/21/19 11:00 am Bud Reyes MD [Non-Partnered Physician] - 04/21/19 2:00 pm (This appointment is in the [facility] located on [address] near the [facility].) - Diet and Activity Activity: as per physical therapy Diet: advance to your usual diet
--- NOTE | 2019-04-17 11:25 | Electrocardiograph Report ---
[place] [id number] Test Date: 2019-04-15 Pat Name: Loan Denny Department: 104 Room: 3B Gender: F Clinical Support Tech: Jaqui : 1950 Requested By: Janet Whelan Order Number: [id number] Reading MD: Tip Garay Measurements Intervals Wink Rate: 91 P: 68 OR: 148 QRS: 69 QRSD: 70 T: 56 QT: 351 QTc: 400 Interpretive Statements SINUS RHYTHM WITH OCCASIONAL ECTOPIC PREMATURE COMPLEXES SEPTAL MYOCARDIAL INFARCTION, PROBABLY OLD somatic artifact Electronically Signed On 04-17-2019 11:23:32 EDT by Tip Garay
== END 2019-04-17 11:56 | disposition home or self-care (01) ==
LOC: EMEROOARM 11:28 → 3BNU 11:28
PROVIDERS: ADMIT Internal Medicine; ATTEND Internal Medicine

== ENCOUNTER 2021-11-14 18:39 | Inpatient (IN) ==
[2021-11-14 20:28] LABS: Basophils # 0.1 K/mcL (0.0-0.2); Basophils % 0.4 %; Eosinophils # 0.2 K/mcL (0.0-0.6); Eosinophils % 1.2 %; Hematocrit 40.8 % (35.3-44.9); Immature Granulocytes % 0.8 % (0-4); Lymphocytes % 5.2 %; Mean Corpuscular HGB Conc 31.9 g/dL (31.6-35.5); Mean Corpuscular Hemoglobin 29.7 pg (28.0-33.3); Mean Corpuscular Volume 93.4 fL (83.0-100.0); Mean Platelet Volume 8.7 fL (9.4-12.4); Monocytes # 0.8 K/mcL (0.0-1.3); Monocytes % 4.2 %; Neutrophils # 16.9 K/mcL (1.6-8.9); Platelet Count 462 K/mcL (140-400); Red Blood Count 4.37 M/mcL (3.82-4.97); Red Cell Distribution Width 14.4 % (11.5-14.5); Segmented Neutrophils % 88.2 %; White Blood Count 19.1 K/mcL (4.3-11.1)
[2021-11-14 20:33] LABS: Activated Partial Thrombo Time 33.1 Seconds (26.0-36.0)
[2021-11-14 20:36] LABS: Alanine Aminotransferase 13 Units/L (7-52); Albumin 3.1 g/dL (3.5-5.7); Alkaline Phosphatase 107 Units/L (34-104); Aspartate Amino Transferase 21 Units/L (13-39); BUN/Creatinine Ratio 31 (6-26); Bilirubin,Total 0.4 mg/dL (0.3-1.0); Blood Urea Nitrogen 15 mg/dL (8-23); Calcium 8.4 mg/dL (8.6-10.3); Carbon Dioxide 27 mEq/L (23-29); Chloride 98 mEq/L (98-107); Glucose 213 mg/dL (70-105); Osmolality,Calculated 287 (280-300); Potassium 3.3 mEq/L (3.5-5.1); Sodium 135 mEq/L (136-145); Total Protein 6.1 g/dL (6.4-8.9); eGFR For African Americans > 60 (> 60); eGFR For Non-African Americans > 60 (> 60)
[2021-11-14] MEDS ORDERED: Isovue-370 500 ML BOTTLE IVP ONE (20:43)
[2021-11-14 21:47] LABS: Bacteria,Urine Few per hpf (None-Few); Bilirubin,Urine Negative (Negative); Blood,Urine Negative (Negative); Calcium Oxalate Crystals,Urine Present per hpf; Clarity,Urine Turbid (Clear); Color,Urine Yellow (Yellow); Glucose,Urine (UA) Normal (Normal); Ketones,Urine Trace mg/dL (Negative); Leukocyte Esterase,Urine Negative (Negative); Mucus,Urine Few per lpf (None-Few); Nitrite,Urine Negative (Negative); PH,Urine 5.5 pH Units (5.0-8.0); Protein,Urine Trace mg/dL (Neg-Trace); Specific Gravity,Urine 1.024 (1.010-1.025); Squamous Epithelial Cell,Urine Few per hpf (None-Few); Urobilinogen,Urine Normal (Normal)
[2021-11-14] MEDS ORDERED: Piperacillin/Tazobactam 3.375 GM in 0.9 % Sodium Chloride Mini Bag 100 ML IVP ONE (22:40)
[2021-11-14] MEDS ORDERED: 0.9 % Sodium Chloride 1,000 ML IV ONE ×2 (22:41→23:13)
[2021-11-14] MEDS ORDERED: Vancomycin 1,250 MG/262.5 ML IV.SOLN IVPB ONE (22:45)
[2021-11-15] MEDS ORDERED: Ondansetron ODT 4 MG TAB.RAPDIS SL PRN (00:29)
[2021-11-15] MEDS ORDERED: Melatonin 3 MG TABLET PO PRN (00:29)
[2021-11-15] MEDS ORDERED: Naloxone 0.4 MG/ML INJ IVP PRN (00:29)
[2021-11-15] MEDS ORDERED: 0.9 % Sodium Chloride 1,000 ML IVC SCH (02:30)
[2021-11-15] MEDS ORDERED: diazePAM 5 MG TABLET PO PRN (02:55)
[2021-11-15 03:24] LABS: BUN/Creatinine Ratio 36 (6-26); Blood Urea Nitrogen 13 mg/dL (8-23); C-Reactive Protein 70 mg/L (Less than 10); Calcium 7.3 mg/dL (8.6-10.3); Carbon Dioxide 24 mEq/L (23-29); Chloride 104 mEq/L (98-107); Creatine Kinase 76 Units/L (30-223); Glucose 105 mg/dL (70-105); Magnesium 1.7 mg/dL (1.6-2.6); Osmolality,Calculated 284 (280-300); Phosphorous 3.3 mg/dL (2.7-4.5); Sodium 137 mEq/L (136-145); eGFR For African Americans > 60 (> 60); eGFR For Non-African Americans > 60 (> 60)
[2021-11-15 05:45] LABS: Basophils # 0.1 K/mcL (0.0-0.2); Basophils % 0.6 %; Eosinophils # 0.7 K/mcL (0.0-0.6); Eosinophils % 3.9 %; Hematocrit 35.5 % (35.3-44.9); Hemoglobin 11.5 g/dL (11.5-15.4); Immature Granulocytes % 0.7 % (0-4); Lymphocytes # 2.3 K/mcL (0.6-4.6); Lymphocytes % 12.9 %; Mean Corpuscular HGB Conc 32.4 g/dL (31.6-35.5); Mean Corpuscular Hemoglobin 30.2 pg (28.0-33.3); Mean Corpuscular Volume 93.2 fL (83.0-100.0); Mean Platelet Volume 9.4 fL (9.4-12.4); Monocytes # 1.4 K/mcL (0.0-1.3); Monocytes % 7.8 %; Neutrophils # 12.9 K/mcL (1.6-8.9); Platelet Count 401 K/mcL (140-400); Red Blood Count 3.81 M/mcL (3.82-4.97); Red Cell Distribution Width 14.4 % (11.5-14.5); Segmented Neutrophils % 74.1 %; White Blood Count 17.4 K/mcL (4.3-11.1)
[2021-11-15] MEDS ORDERED: *HR* Enoxaparin 80 MG/0.8 ML SYRINGE SQ SCH ×2 (06:00)
[2021-11-15] MEDS: Piperacillin/Tazobactam 3.375 GM in 0.9 % Sodium Chloride Mini Bag 100 ML IVPB SCH ×2 (08:24→17:12)
[2021-11-15] MEDS: Baclofen 10 MG TABLET PO SCH ×4 (08:25→20:46)
[2021-11-15] MEDS: Gabapentin 300 MG CAPSULE PO SCH ×3 (08:25→20:46)
[2021-11-15] MEDS: Vancomycin 1,250 MG/262.5 ML IV.SOLN IVPB SCH (12:00)
[2021-11-15] MEDS ORDERED: *HR* Enoxaparin 100 MG/ML SYRINGE SQ SCH (18:00)
[2021-11-15] MEDS: *HR* Rivaroxaban 15 MG TABLET PO SCH (20:46)
[2021-11-16] MEDS: Vancomycin 1,250 MG/262.5 ML IV.SOLN IVPB SCH ×2 (00:40→11:52)
[2021-11-16 00:41] LABS: mecA/C Methicillin-Resist Gene DETECTED (Not Detect)
[2021-11-16 00:42] LABS: A.calcoaceticus-baumannii cplx Not Detected (Not Detect); Bacteroides fragilis by PCR Not Detected (Not Detect); Candida albicans by PCR Not Detected (Not Detect); Candida auris by PCR Not Detected (Not Detect); Candida glabrata by PCR Not Detected (Not Detect); Candida krusei by PCR Not Detected (Not Detect); Candida parapsilosis by PCR Not Detected (Not Detect); Candida tropicalis by PCR Not Detected (Not Detect); Crypto. neoformans/gattii PCR Not Detected (Not Detect); Enterobacter cloacae Cmplx PCR Not Detected (Not Detect); Enterobacterales by PCR Not Detected (Not Detect); Enterococcus faecalis by PCR Not Detected (Not Detect); Enterococcus faecium by PCR Not Detected (Not Detect); Escherichia coli by PCR Not Detected (Not Detect); Klebs. pneumoniae group by PCR Not Detected (Not Detect); Klebsiella aerogenes by PCR Not Detected (Not Detect); Klebsiella oxytoca by PCR Not Detected (Not Detect); Proteus by PCR Not Detected (Not Detect); Pseudomonas aeruginosa by PCR Not Detected (Not Detect); Salmonella species by PCR Not Detected (Not Detect); Serratia marcescens by PCR Not Detected (Not Detect); Staph epidermidis by PCR DETECTED (Not Detect); Staph lugdunensis by PCR Not Detected (Not Detect); Staphylococcus aureus by PCR Not Detected (Not Detect); Stenotrophomonas maltophilia Not Detected (Not Detect); Streptococcus agalactiae(B)PCR Not Detected (Not Detect); Streptococcus by PCR Not Detected (Not Detect); Streptococcus pneumoniae PCR Not Detected (Not Detect); Streptococcus pyogenes (A) PCR Not Detected (Not Detect)
[2021-11-16] MEDS: Piperacillin/Tazobactam 3.375 GM in 0.9 % Sodium Chloride Mini Bag 100 ML IVPB SCH ×3 (00:46→17:17)
[2021-11-16] MEDS: *HR* Rivaroxaban 15 MG TABLET PO SCH ×2 (08:24→21:02)
[2021-11-16] MEDS: Gabapentin 300 MG CAPSULE PO SCH ×3 (08:24→20:59)
[2021-11-16] MEDS: Baclofen 10 MG TABLET PO SCH ×4 (08:25→21:05)
[2021-11-16 09:20] LABS: BUN/Creatinine Ratio 29 (6-26); Blood Urea Nitrogen 8 mg/dL (8-23); Calcium 7.3 mg/dL (8.6-10.3); Carbon Dioxide 27 mEq/L (23-29); Chloride 110 mEq/L (98-107); Glucose 145 mg/dL (70-105); Osmolality,Calculated 293 (280-300); Potassium 3.3 mEq/L (3.5-5.1); Sodium 141 mEq/L (136-145); eGFR For African Americans > 60 (> 60); eGFR For Non-African Americans > 60 (> 60)
[2021-11-17] MEDS: Piperacillin/Tazobactam 3.375 GM in 0.9 % Sodium Chloride Mini Bag 100 ML IVPB SCH ×3 (00:01→17:02)
[2021-11-17] MEDS: Vancomycin 1,250 MG/262.5 ML IV.SOLN IVPB SCH ×2 (00:02→12:25)
[2021-11-17 04:41] LABS: Hematocrit 31.4 % (35.3-44.9); Mean Corpuscular HGB Conc 31.5 g/dL (31.6-35.5); Mean Corpuscular Hemoglobin 30.4 pg (28.0-33.3); Mean Corpuscular Volume 96.3 fL (83.0-100.0); Mean Platelet Volume 8.8 fL (9.4-12.4); Platelet Count 399 K/mcL (140-400); Red Blood Count 3.26 M/mcL (3.82-4.97); Red Cell Distribution Width 14.6 % (11.5-14.5); White Blood Count 9.5 K/mcL (4.3-11.1)
[2021-11-17 04:42] LABS: Hemoglobin 9.9 g/dL (11.5-15.4)
[2021-11-17 05:01] LABS: BUN/Creatinine Ratio 24 (6-26); Blood Urea Nitrogen 8 mg/dL (8-23); Calcium 7.4 mg/dL (8.6-10.3); Carbon Dioxide 27 mEq/L (23-29); Chloride 110 mEq/L (98-107); Glucose 128 mg/dL (70-105); Osmolality,Calculated 292 (280-300); Potassium 3.4 mEq/L (3.5-5.1); Sodium 141 mEq/L (136-145); eGFR For African Americans > 60 (> 60); eGFR For Non-African Americans > 60 (> 60)
[2021-11-17] MEDS ORDERED: Ergocalciferol (VIT D2) 50,000 UNIT (1.25MG) CAP PO SCH ×3 (08:34→13:34)
[2021-11-17] MEDS: Baclofen 10 MG TABLET PO SCH ×3 (08:46→21:45)
[2021-11-17] MEDS: Gabapentin 300 MG CAPSULE PO SCH ×3 (08:46→21:44)
[2021-11-17] MEDS ORDERED: Lidocaine -MPF 2% 2 ML VIAL ONE (11:29)
[2021-11-17] MEDS ORDERED: *HR* Propofol 200 MG/20 ML VIAL IVP ONE (11:29)
[2021-11-17] MEDS ORDERED: Bupivacaine/Clonidine Syringe 20 ML, Syringe LUER-LOK 1 EACH TP ONE (12:00)
[2021-11-17] MEDS ORDERED: diazePAM 5 MG TABLET PO PRN (13:34)
[2021-11-17] MEDS ORDERED: Ondansetron ODT 4 MG TAB.RAPDIS SL PRN (13:34)
[2021-11-17] MEDS ORDERED: Melatonin 3 MG TABLET PO PRN (13:34)
[2021-11-17] MEDS ORDERED: Naloxone 0.4 MG/ML INJ IVP PRN (13:34)
[2021-11-17] MEDS ORDERED: Clobetasol Propionate 0.05% 15 GM Cream Tube TP SCH (21:00)
[2021-11-17] MEDS: *HR* Rivaroxaban 15 MG TABLET PO SCH (21:45)
[2021-11-18] MEDS ORDERED: Vancomycin 1,250 MG/262.5 ML IV.SOLN IVPB SCH
[2021-11-18] MEDS: Piperacillin/Tazobactam 3.375 GM in 0.9 % Sodium Chloride Mini Bag 100 ML IVPB SCH ×3 (00:48→15:10)
[2021-11-18] MEDS: Clobetasol Propionate 0.05% 15 GM Cream Tube TP SCH ×3 (04:31→22:07)
[2021-11-18 06:20] LABS: Hematocrit 31.1 % (35.3-44.9); Hemoglobin 9.7 g/dL (11.5-15.4); Mean Corpuscular HGB Conc 31.2 g/dL (31.6-35.5); Mean Corpuscular Hemoglobin 29.8 pg (28.0-33.3); Mean Corpuscular Volume 95.7 fL (83.0-100.0); Mean Platelet Volume 8.7 fL (9.4-12.4); Platelet Count 402 K/mcL (140-400); Red Blood Count 3.25 M/mcL (3.82-4.97); Red Cell Distribution Width 14.6 % (11.5-14.5); White Blood Count 10.6 K/mcL (4.3-11.1)
[2021-11-18 06:40] LABS: BUN/Creatinine Ratio 22 (6-26); Blood Urea Nitrogen 9 mg/dL (8-23); Calcium 7.4 mg/dL (8.6-10.3); Carbon Dioxide 28 mEq/L (23-29); Chloride 109 mEq/L (98-107); Glucose 159 mg/dL (70-105); Osmolality,Calculated 294 (280-300); Potassium 3.3 mEq/L (3.5-5.1); Sodium 141 mEq/L (136-145); eGFR For African Americans > 60 (> 60); eGFR For Non-African Americans > 60 (> 60)
[2021-11-18] MEDS: Baclofen 10 MG TABLET PO SCH ×4 (09:14→22:05)
[2021-11-18] MEDS: Gabapentin 300 MG CAPSULE PO SCH ×3 (09:14→22:05)
[2021-11-18] MEDS: *HR* Rivaroxaban 15 MG TABLET PO SCH ×2 (09:15→22:05)
[2021-11-19] MEDS: Piperacillin/Tazobactam 3.375 GM in 0.9 % Sodium Chloride Mini Bag 100 ML IVPB SCH ×4 (00:14→23:36)
[2021-11-19] MEDS: Furosemide 20 MG/2 ML VIAL IVP SCH ×2 (11:18→16:47)
[2021-11-19] MEDS: Gabapentin 300 MG CAPSULE PO SCH ×3 (11:19→20:45)
[2021-11-19] MEDS: *HR* Rivaroxaban 15 MG TABLET PO SCH ×2 (11:20→20:45)
[2021-11-19] MEDS: Baclofen 10 MG TABLET PO SCH ×4 (11:20→20:46)
[2021-11-19] MEDS: Clobetasol Propionate 0.05% 15 GM Cream Tube TP SCH ×2 (12:29→20:47)
[2021-11-20 04:33] LABS: Hematocrit 30.2 % (35.3-44.9); Hemoglobin 9.7 g/dL (11.5-15.4); Mean Corpuscular HGB Conc 32.1 g/dL (31.6-35.5); Mean Corpuscular Hemoglobin 30.4 pg (28.0-33.3); Mean Corpuscular Volume 94.7 fL (83.0-100.0); Mean Platelet Volume 8.8 fL (9.4-12.4); Platelet Count 394 K/mcL (140-400); Red Blood Count 3.19 M/mcL (3.82-4.97); White Blood Count 11.2 K/mcL (4.3-11.1)
[2021-11-20 04:54] LABS: Alanine Aminotransferase 13 Units/L (7-52); Albumin 2.5 g/dL (3.5-5.7); Alkaline Phosphatase 84 Units/L (34-104); Aspartate Amino Transferase 15 Units/L (13-39); BUN/Creatinine Ratio 23 (6-26); Bilirubin,Indirect 0.2 mg/dL (0.0-1.0); Bilirubin,Total 0.2 mg/dL (0.3-1.0); Blood Urea Nitrogen 11 mg/dL (8-23); Calcium 7.6 mg/dL (8.6-10.3); Carbon Dioxide 30 mEq/L (23-29); Chloride 102 mEq/L (98-107); Globulin 2.5 g/dL (2.4-3.5); Glucose 179 mg/dL (70-105); Magnesium 1.7 mg/dL (1.6-2.6); Osmolality,Calculated 292 (280-300); Phosphorous 3.9 mg/dL (2.7-4.5); Potassium 3.1 mEq/L (3.5-5.1); Sodium 139 mEq/L (136-145); eGFR For African Americans > 60 (> 60); eGFR For Non-African Americans > 60 (> 60)
[2021-11-20] MEDS: Furosemide 20 MG/2 ML VIAL IVP SCH (07:44)
[2021-11-20] MEDS: Baclofen 10 MG TABLET PO SCH ×4 (07:45→20:01)
[2021-11-20] MEDS: Gabapentin 300 MG CAPSULE PO SCH ×3 (07:45→20:01)
[2021-11-20] MEDS: *HR* Rivaroxaban 15 MG TABLET PO SCH ×2 (07:46→20:01)
[2021-11-20] MEDS: Piperacillin/Tazobactam 3.375 GM in 0.9 % Sodium Chloride Mini Bag 100 ML IVPB SCH ×2 (07:46→15:03)
[2021-11-20] MEDS: Clobetasol Propionate 0.05% 15 GM Cream Tube TP SCH ×2 (07:47→20:02)
[2021-11-20] MEDS ORDERED: Lidocaine -MPF 1% 5 ML AMPUL INFILT ONE (14:53)
[2021-11-21] MEDS: Piperacillin/Tazobactam 3.375 GM in 0.9 % Sodium Chloride Mini Bag 100 ML IVPB SCH ×2 (00:35→08:43)
[2021-11-21 06:25] LABS: Hematocrit 30.5 % (35.3-44.9); Hemoglobin 9.6 g/dL (11.5-15.4); Mean Corpuscular HGB Conc 31.5 g/dL (31.6-35.5); Mean Corpuscular Volume 95.3 fL (83.0-100.0); Mean Platelet Volume 8.8 fL (9.4-12.4); Platelet Count 391 K/mcL (140-400); Red Cell Distribution Width 15.2 % (11.5-14.5); White Blood Count 11.6 K/mcL (4.3-11.1)
[2021-11-21 06:33] LABS: BUN/Creatinine Ratio 29 (6-26); Blood Urea Nitrogen 11 mg/dL (8-23); Calcium 7.8 mg/dL (8.6-10.3); Carbon Dioxide 30 mEq/L (23-29); Chloride 104 mEq/L (98-107); Glucose 112 mg/dL (70-105); Osmolality,Calculated 288 (280-300); Potassium 3.8 mEq/L (3.5-5.1); Sodium 139 mEq/L (136-145); eGFR For African Americans > 60 (> 60); eGFR For Non-African Americans > 60 (> 60)
[2021-11-21 07:13] VITALS: O2SAT 93
[2021-11-21 08:18] LABS: C-Reactive Protein 81 mg/L (Less than 10)
[2021-11-21] MEDS: Baclofen 10 MG TABLET PO SCH ×3 (08:43→17:53)
[2021-11-21] MEDS: *HR* Rivaroxaban 15 MG TABLET PO SCH (08:43)
[2021-11-21] MEDS: Gabapentin 300 MG CAPSULE PO SCH ×2 (08:43→14:21)
[2021-11-21] MEDS: Clobetasol Propionate 0.05% 15 GM Cream Tube TP SCH (08:46)
[2021-11-21 16:30] VITALS: BP 100/62; PULSE 80; TEMP 97.8
[2021-11-21 17:16] LABS: Adenovirus Not Detected (Not Detect); Coronavirus 229E Not Detected (Not Detect); Coronavirus HKU1 Not Detected (Not Detect); Coronavirus NL63 Not Detected (Not Detect); Coronavirus OC43 Not Detected (Not Detect); Human Metapneumovirus Not Detected (Not Detect); Human Rhinovirus/Enterovirus Not Detected (Not Detect); Influenza A Subtype 2009 H1 Not Detected (Not Detect); Influenza B Not Detected (Not Detect); Parainfluenza Virus 1 Not Detected (Not Detect); Parainfluenza Virus 2 Not Detected (Not Detect); Parainfluenza Virus 3 Not Detected (Not Detect); SARS-CoV-2 Not Detected (Not Detect)
[2021-11-21 17:17] LABS: Bordetella Pertussis Not Detected (Not Detect); Chlamydophila pneumoniae Not Detected (Not Detect); Mycoplasma pneumoniae Not Detected (Not Detect); Parainfluenza Virus 4 Not Detected (Not Detect); Respiratory Syncytial Virus Not Detected (Not Detect)
== END 2021-11-21 19:30 | disposition other institution (70) | DRG 853 ==
LOC: EMEROOARM 18:39 → 3ANU 18:39 → SUATTDRO 11-15 00:25 → 3ANU 11-15 00:50
PROVIDERS: ADMIT Internal Medicine; ATTEND Internal Medicine

== ENCOUNTER 2022-01-08 14:36 | Inpatient (IN) ==
[2022-01-08] MEDS ORDERED: Acetaminophen 325 MG TABLET PO PRN (18:23)
[2022-01-08] MEDS ORDERED: Naloxone 0.4 MG/ML INJ IVP PRN (18:23)
[2022-01-08 19:14] LABS: Potassium 4.7 mEq/L (3.5-5.1)
[2022-01-08] MEDS: 0.9 % Sodium Chloride 1,000 ML IVC SCH (19:42)
[2022-01-08] MEDS ORDERED: 0.9 % Sodium Chloride 500 ML IVC ONE (20:56)
[2022-01-08 21:02] LABS: Mixed Venous Blood pCO2 43 mmHg (44-46); Mixed Venous Blood pH 7.36 pH Units (7.34-7.36); Mixed Venous Blood pO2 49 mmHg (35-45)
[2022-01-08 21:03] LABS: Influenza A PCR Negative (Negative); Influenza B PCR Negative (Negative); Resp. Syncytial Virus PCR Negative (Negative)
[2022-01-08 21:45] LABS: INR 1.4
[2022-01-08 21:52] LABS: Bilirubin,Direct 0.1 mg/dL (0.0-0.2); Bilirubin,Indirect 0.4 mg/dL (0.0-1.0); Bilirubin,Total 0.5 mg/dL (0.3-1.0); Globulin 2.9 g/dL (2.4-3.5); Total Protein 5.9 g/dL (6.4-8.9)
[2022-01-08] MEDS: Cefepime HCl 1,000 MG in 0.9 % Sodium Chloride 10 ML IVP SCH (21:57)
[2022-01-08 22:03] LABS: SARS-CoV-2 by PCR (In House) Negative (Negative)
[2022-01-09] MEDS: *HR* OxyCODONE Immed Rel 5 MG TABLET PO PRN (04:05)
[2022-01-09 07:23] LABS: Basophils % 0.3 %; Eosinophils # 0.5 K/mcL (0.0-0.6); Eosinophils % 4.3 %; Hematocrit 26.8 % (35.3-44.9); Hemoglobin 8.4 g/dL (11.5-15.4); Immature Granulocytes % 0.4 % (0-4); Lymphocytes # 0.8 K/mcL (0.6-4.6); Lymphocytes % 6.9 %; Mean Corpuscular HGB Conc 31.3 g/dL (31.6-35.5); Mean Corpuscular Hemoglobin 29.9 pg (28.0-33.3); Mean Corpuscular Volume 95.4 fL (83.0-100.0); Mean Platelet Volume 10.1 fL (9.4-12.4); Monocytes % 8.3 %; Neutrophils # 9.1 K/mcL (1.6-8.9); Platelet Count 201 K/mcL (140-400); Red Blood Count 2.81 M/mcL (3.82-4.97); Red Cell Distribution Width 16.4 % (11.5-14.5); Segmented Neutrophils % 79.8 %; White Blood Count 11.4 K/mcL (4.3-11.1)
[2022-01-09 07:31] LABS: INR 1.4; Prothrombin Time 15.1 Seconds (9.4-12.1)
[2022-01-09 08:00] LABS: Calcium 7.6 mg/dL (8.6-10.3); Magnesium 2.1 mg/dL (1.6-2.6); Phosphorous 6.4 mg/dL (2.7-4.5); Potassium 4.6 mEq/L (3.5-5.1)
[2022-01-09 08:01] LABS: Chol/HDL Ratio 11.9 (0-4.9)
[2022-01-09] MEDS: Cefepime HCl 1,000 MG in 0.9 % Sodium Chloride 10 ML IVP SCH ×2 (09:26→21:27)
[2022-01-09] MEDS: 0.9 % Sodium Chloride 1,000 ML IVC SCH ×3 (09:27→18:44)
[2022-01-09] MEDS ORDERED: MetroNIDAZOLE 500 MG/100 ML 500 MG/100 ML BAG IVPB SCH ×2 (10:00)
[2022-01-09] MEDS: *HR* Rivaroxaban 10 MG TABLET PO SCH (16:08)
[2022-01-09] MEDS ORDERED: CLINDAMYCIN PHOSPHATE TP PRN (16:46)
[2022-01-09] MEDS: Clotrimazole 1% CRM 15 GM TUBE TP SCH (21:26)
[2022-01-10] MEDS: *HR* OxyCODONE Immed Rel 5 MG TABLET PO PRN (00:06)
[2022-01-10] MEDS: 0.9 % Sodium Chloride 1,000 ML IVC SCH ×2 (05:44→15:30)
[2022-01-10 06:03] LABS: Basophils # 0.1 K/mcL (0.0-0.2); Basophils % 0.6 %; Eosinophils # 0.7 K/mcL (0.0-0.6); Eosinophils % 6.8 %; Hematocrit 29.9 % (35.3-44.9); Hemoglobin 9.2 g/dL (11.5-15.4); Immature Granulocytes % 0.4 % (0-4); Lymphocytes # 1.1 K/mcL (0.6-4.6); Lymphocytes % 11.2 %; Mean Corpuscular HGB Conc 30.8 g/dL (31.6-35.5); Mean Corpuscular Hemoglobin 29.8 pg (28.0-33.3); Mean Corpuscular Volume 96.8 fL (83.0-100.0); Monocytes % 9.8 %; Platelet Count 208 K/mcL (140-400); Red Blood Count 3.09 M/mcL (3.82-4.97); Red Cell Distribution Width 16.3 % (11.5-14.5); Segmented Neutrophils % 71.2 %; White Blood Count 9.8 K/mcL (4.3-11.1)
[2022-01-10 07:32] LABS: Phosphorous 5.3 mg/dL (2.7-4.5); Potassium 3.8 mEq/L (3.5-5.1)
[2022-01-10] MEDS: Loratadine 10 MG TABLET PO SCH (09:37)
[2022-01-10] MEDS: Cefepime HCl 2,000 MG in 0.9 % Sodium Chloride 10 ML IVP SCH ×2 (09:39→20:45)
[2022-01-10] MEDS: Clotrimazole 1% CRM 15 GM TUBE TP SCH ×2 (09:39→20:53)
[2022-01-10] MEDS: *HR* Rivaroxaban 10 MG TABLET PO SCH (15:32)
[2022-01-10] MEDS: Ondansetron 4 MG/2 ML VIAL IVP PRN (18:47)
[2022-01-10] MEDS: Melatonin 3 MG TABLET PO PRN (20:45)
[2022-01-10] MEDS: *HR* HYDROcodone/Acet 5/325 mg TABLET PO PRN (22:22)
[2022-01-11] MEDS: 0.9 % Sodium Chloride 1,000 ML IVC SCH ×2 (00:03→09:01)
[2022-01-11] MEDS: Ipratropium/Albuterol Neb 3 ML IH PRN (00:10)
[2022-01-11] MEDS: *HR* HYDROcodone/Acet 5/325 mg TABLET PO PRN (05:24)
[2022-01-11 07:45] LABS: Albumin 2.6 g/dL (3.5-5.7); Bilirubin,Total 0.3 mg/dL (0.3-1.0); Calcium 7.7 mg/dL (8.6-10.3); Globulin 2.6 g/dL (2.4-3.5); Potassium 3.7 mEq/L (3.5-5.1); Total Protein 5.2 g/dL (6.4-8.9)
[2022-01-11] MEDS: Loratadine 10 MG TABLET PO SCH (08:58)
[2022-01-11] MEDS: Ertapenem 1,000 MG in 0.9 % Sodium Chloride Mini Bag 100 ML IVPB SCH (08:59)
[2022-01-11] MEDS: Clotrimazole 1% CRM 15 GM TUBE TP SCH ×2 (08:59→21:39)
[2022-01-11] MEDS: Furosemide 20 MG/2 ML VIAL IVP ONE (13:37)
[2022-01-11] MEDS: *HR* Rivaroxaban 10 MG TABLET PO SCH (16:05)
[2022-01-11] MEDS: Melatonin 3 MG TABLET PO PRN (21:38)
[2022-01-11] MEDS: Ondansetron 4 MG/2 ML VIAL IVP PRN (21:38)
[2022-01-12] MEDS: *HR* HYDROcodone/Acet 5/325 mg TABLET PO PRN ×2 (00:56→22:16)
[2022-01-12 03:13] LABS: BUN/Creatinine Ratio 34 (6-26); Blood Urea Nitrogen 29 mg/dL (8-23); Calcium 8.2 mg/dL (8.6-10.3); Carbon Dioxide 23 mEq/L (23-29); Chloride 106 mEq/L (98-107); Glucose 101 mg/dL (70-105); Magnesium 1.5 mg/dL (1.6-2.6); Osmolality,Calculated 298 (280-300); Potassium 3.2 mEq/L (3.5-5.1); Sodium 141 mEq/L (136-145); eGFR For African Americans > 60 (> 60); eGFR For Non-African Americans > 60 (> 60)
[2022-01-12 03:17] LABS: Basophils # 0.1 K/mcL (0.0-0.2); Basophils % 0.6 %; Eosinophils # 0.4 K/mcL (0.0-0.6); Eosinophils % 3.9 %; Hematocrit 29.5 % (35.3-44.9); Hemoglobin 9.1 g/dL (11.5-15.4); Immature Granulocytes % 0.5 % (0-4); Lymphocytes % 9.2 %; Mean Corpuscular HGB Conc 30.8 g/dL (31.6-35.5); Mean Corpuscular Hemoglobin 29.4 pg (28.0-33.3); Mean Corpuscular Volume 95.5 fL (83.0-100.0); Mean Platelet Volume 9.7 fL (9.4-12.4); Monocytes # 1.1 K/mcL (0.0-1.3); Monocytes % 9.6 %; Neutrophils # 8.4 K/mcL (1.6-8.9); Platelet Count 256 K/mcL (140-400); Red Blood Count 3.09 M/mcL (3.82-4.97); Red Cell Distribution Width 15.6 % (11.5-14.5); Segmented Neutrophils % 76.2 %; White Blood Count 11.1 K/mcL (4.3-11.1)
[2022-01-12] MEDS: Loratadine 10 MG TABLET PO SCH (08:56)
[2022-01-12] MEDS: Clotrimazole 1% CRM 15 GM TUBE TP SCH ×2 (08:57→22:39)
[2022-01-12] MEDS: Ertapenem 1,000 MG in 0.9 % Sodium Chloride Mini Bag 100 ML IVPB SCH (08:57)
[2022-01-12] MEDS: Furosemide 20 MG/2 ML VIAL IVP SCH (10:45)
[2022-01-12] MEDS: Baclofen 10 MG TABLET PO SCH ×2 (14:12→22:15)
[2022-01-12] MEDS: *HR* Rivaroxaban 10 MG TABLET PO SCH (16:30)
[2022-01-12] MEDS: Gabapentin 300 MG CAPSULE PO SCH (22:16)
[2022-01-13 00:34] LABS: Bacteria,Urine Few per hpf (None-Few); Bilirubin,Urine Negative (Negative); Blood,Urine Trace (Negative); Budding Yeast,Urine Many per hpf (None Seen); Clarity,Urine Turbid (Clear); Color,Urine Light-Yellow (Yellow); Glucose,Urine (UA) Normal (Normal); Ketones,Urine Negative (Negative); Leukocyte Esterase,Urine Large (Negative); Mucus,Urine Few per lpf (None-Few); Nitrite,Urine Negative (Negative); Protein,Urine Trace mg/dL (Neg-Trace); RBC,Urine 15-30 per hpf (0-3); Urobilinogen,Urine Normal (Normal); WBC,Urine 30-50 per hpf (0-3)
[2022-01-13 03:18] LABS: Basophils # 0.1 K/mcL (0.0-0.2); Basophils % 0.8 %; Eosinophils # 0.4 K/mcL (0.0-0.6); Eosinophils % 3.5 %; Hematocrit 31.8 % (35.3-44.9); Hemoglobin 10.2 g/dL (11.5-15.4); Immature Granulocytes % 0.7 % (0-4); Lymphocytes # 1.5 K/mcL (0.6-4.6); Lymphocytes % 13.3 %; Mean Corpuscular HGB Conc 32.1 g/dL (31.6-35.5); Mean Corpuscular Hemoglobin 30.1 pg (28.0-33.3); Mean Corpuscular Volume 93.8 fL (83.0-100.0); Mean Platelet Volume 9.4 fL (9.4-12.4); Monocytes # 1.2 K/mcL (0.0-1.3); Monocytes % 10.2 %; Neutrophils # 8.1 K/mcL (1.6-8.9); Platelet Count 302 K/mcL (140-400); Red Blood Count 3.39 M/mcL (3.82-4.97); Red Cell Distribution Width 15.6 % (11.5-14.5); Segmented Neutrophils % 71.5 %; White Blood Count 11.3 K/mcL (4.3-11.1)
[2022-01-13 03:33] LABS: BUN/Creatinine Ratio 36 (6-26); Blood Urea Nitrogen 22 mg/dL (8-23); Calcium 8.3 mg/dL (8.6-10.3); Carbon Dioxide 26 mEq/L (23-29); Chloride 104 mEq/L (98-107); Glucose 107 mg/dL (70-105); Magnesium 1.6 mg/dL (1.6-2.6); Osmolality,Calculated 298 (280-300); Potassium 3.3 mEq/L (3.5-5.1); Sodium 142 mEq/L (136-145); eGFR For African Americans > 60 (> 60); eGFR For Non-African Americans > 60 (> 60)
[2022-01-13] MEDS: *HR* HYDROcodone/Acet 5/325 mg TABLET PO PRN (04:50)
[2022-01-13] MEDS ORDERED: *HR* LORazepam 2 MG/ML VIAL IVP ONE (05:58)
[2022-01-13] MEDS: Clotrimazole 1% CRM 15 GM TUBE TP SCH ×2 (08:18→20:48)
[2022-01-13] MEDS: Ertapenem 1,000 MG in 0.9 % Sodium Chloride Mini Bag 100 ML IVPB SCH (08:18)
[2022-01-13] MEDS: Loratadine 10 MG TABLET PO SCH (08:19)
[2022-01-13] MEDS: Baclofen 10 MG TABLET PO SCH ×3 (08:19→20:34)
[2022-01-13] MEDS: Furosemide 20 MG/2 ML VIAL IVP SCH (08:19)
[2022-01-13] MEDS: Gabapentin 300 MG CAPSULE PO SCH ×2 (08:19→20:35)
[2022-01-13] MEDS ORDERED: Furosemide 20 MG/2 ML VIAL IVP ONE (08:35)
[2022-01-13] MEDS: Furosemide 20 MG/2 ML VIAL IVP ONE (12:25)
[2022-01-13] MEDS: *HR* Rivaroxaban 10 MG TABLET PO SCH (17:16)
[2022-01-14 03:32] LABS: Eosinophils # 0.2 K/mcL (0.0-0.6); Hematocrit 31.7 % (35.3-44.9); Hemoglobin 9.8 g/dL (11.5-15.4); Mean Corpuscular HGB Conc 30.9 g/dL (31.6-35.5); Mean Corpuscular Hemoglobin 29.5 pg (28.0-33.3); Mean Corpuscular Volume 95.5 fL (83.0-100.0); Platelet Count 345 K/mcL (140-400); Red Blood Count 3.32 M/mcL (3.82-4.97); Red Cell Distribution Width 15.9 % (11.5-14.5); White Blood Count 10.3 K/mcL (4.3-11.1)
[2022-01-14 03:56] LABS: BUN/Creatinine Ratio 39 (6-26); Blood Urea Nitrogen 21 mg/dL (8-23); Calcium 8.4 mg/dL (8.6-10.3); Carbon Dioxide 31 mEq/L (23-29); Chloride 104 mEq/L (98-107); Glucose 128 mg/dL (70-105); Magnesium 1.7 mg/dL (1.6-2.6); Osmolality,Calculated 303 (280-300); Potassium 3.9 mEq/L (3.5-5.1); Sodium 144 mEq/L (136-145); eGFR For African Americans > 60 (> 60); eGFR For Non-African Americans > 60 (> 60)
[2022-01-14 04:25] LABS: Lymphocytes # 1.4 K/mcL (0.6-4.6); Monocytes # 0.4 K/mcL (0.0-1.3); Neutrophils # 8.2 K/mcL (1.6-8.9); Platelet Estimate Normal (Normal)
[2022-01-14] MEDS: Ertapenem 1,000 MG in 0.9 % Sodium Chloride Mini Bag 100 ML IVPB SCH (10:14)
[2022-01-14] MEDS: Gabapentin 300 MG CAPSULE PO SCH ×2 (10:20→19:38)
[2022-01-14] MEDS: Baclofen 10 MG TABLET PO SCH ×3 (10:21→19:38)
[2022-01-14] MEDS: Furosemide 20 MG/2 ML VIAL IVP SCH (10:21)
[2022-01-14] MEDS: Loratadine 10 MG TABLET PO SCH (10:21)
[2022-01-14] MEDS: Clotrimazole 1% CRM 15 GM TUBE TP SCH ×2 (10:21→19:39)
[2022-01-14] MEDS: Ipratropium/Albuterol Neb 3 ML IH PRN (13:48)
[2022-01-14] MEDS: *HR* Rivaroxaban 10 MG TABLET PO SCH (16:51)
[2022-01-14] MEDS: Fluconazole 100 MG TABLET PO SCH (16:55)
[2022-01-14] MEDS: *HR* HYDROcodone/Acet 5/325 mg TABLET PO PRN (19:50)
[2022-01-15 03:09] LABS: Basophils # 0.1 K/mcL (0.0-0.2); Basophils % 0.7 %; Eosinophils # 0.5 K/mcL (0.0-0.6); Eosinophils % 4.4 %; Hematocrit 31.8 % (35.3-44.9); Hemoglobin 9.8 g/dL (11.5-15.4); Lymphocytes # 1.9 K/mcL (0.6-4.6); Lymphocytes % 18.2 %; Mean Corpuscular HGB Conc 30.8 g/dL (31.6-35.5); Mean Corpuscular Hemoglobin 29.3 pg (28.0-33.3); Mean Corpuscular Volume 95.2 fL (83.0-100.0); Mean Platelet Volume 9.4 fL (9.4-12.4); Monocytes % 9.3 %; Neutrophils # 6.9 K/mcL (1.6-8.9); Platelet Count 396 K/mcL (140-400); Red Blood Count 3.34 M/mcL (3.82-4.97); Red Cell Distribution Width 15.7 % (11.5-14.5); Segmented Neutrophils % 66.4 %; White Blood Count 10.3 K/mcL (4.3-11.1)
[2022-01-15 03:29] LABS: BUN/Creatinine Ratio 51 (6-26); Blood Urea Nitrogen 26 mg/dL (8-23); Calcium 8.5 mg/dL (8.6-10.3); Carbon Dioxide 33 mEq/L (23-29); Chloride 100 mEq/L (98-107); Glucose 84 mg/dL (70-105); Magnesium 1.8 mg/dL (1.6-2.6); Osmolality,Calculated 294 (280-300); Potassium 4.2 mEq/L (3.5-5.1); Sodium 140 mEq/L (136-145); eGFR For African Americans > 60 (> 60); eGFR For Non-African Americans > 60 (> 60)
[2022-01-15] MEDS: Ertapenem 1,000 MG in 0.9 % Sodium Chloride Mini Bag 100 ML IVPB SCH (08:56)
[2022-01-15] MEDS: Loratadine 10 MG TABLET PO SCH (08:57)
[2022-01-15] MEDS: Baclofen 10 MG TABLET PO SCH ×3 (08:57→20:00)
[2022-01-15] MEDS: Gabapentin 300 MG CAPSULE PO SCH ×2 (08:57→19:59)
[2022-01-15] MEDS: Furosemide 20 MG/2 ML VIAL IVP SCH (08:57)
[2022-01-15] MEDS: Clotrimazole 1% CRM 15 GM TUBE TP SCH ×2 (08:57→20:00)
[2022-01-15] MEDS: Fluconazole 100 MG TABLET PO SCH (08:57)
[2022-01-15] MEDS: *HR* Rivaroxaban 10 MG TABLET PO SCH (16:38)
[2022-01-16 03:49] LABS: Basophils # 0.1 K/mcL (0.0-0.2); Basophils % 0.8 %; Eosinophils # 0.6 K/mcL (0.0-0.6); Eosinophils % 5.9 %; Hemoglobin 9.8 g/dL (11.5-15.4); Immature Granulocytes % 0.9 % (0-4); Lymphocytes # 1.8 K/mcL (0.6-4.6); Lymphocytes % 17.4 %; Mean Corpuscular HGB Conc 30.6 g/dL (31.6-35.5); Mean Corpuscular Hemoglobin 29.3 pg (28.0-33.3); Mean Corpuscular Volume 95.5 fL (83.0-100.0); Mean Platelet Volume 9.4 fL (9.4-12.4); Monocytes # 0.9 K/mcL (0.0-1.3); Monocytes % 8.7 %; Neutrophils # 6.8 K/mcL (1.6-8.9); Platelet Count 424 K/mcL (140-400); Red Blood Count 3.35 M/mcL (3.82-4.97); Red Cell Distribution Width 15.7 % (11.5-14.5); Segmented Neutrophils % 66.3 %; White Blood Count 10.3 K/mcL (4.3-11.1)
[2022-01-16 04:17] LABS: BUN/Creatinine Ratio 47 (6-26); Blood Urea Nitrogen 22 mg/dL (8-23); Calcium 8.6 mg/dL (8.6-10.3); Carbon Dioxide 35 mEq/L (23-29); Chloride 98 mEq/L (98-107); Glucose 99 mg/dL (70-105); Osmolality,Calculated 293 (280-300); Potassium 3.8 mEq/L (3.5-5.1); Sodium 140 mEq/L (136-145); eGFR For African Americans > 60 (> 60); eGFR For Non-African Americans > 60 (> 60)
[2022-01-16] MEDS: Ertapenem 1,000 MG in 0.9 % Sodium Chloride Mini Bag 100 ML IVPB SCH (07:40)
[2022-01-16] MEDS: Gabapentin 300 MG CAPSULE PO SCH ×2 (07:41→20:06)
[2022-01-16] MEDS: Fluconazole 100 MG TABLET PO SCH (07:41)
[2022-01-16] MEDS: Furosemide 20 MG/2 ML VIAL IVP SCH (07:41)
[2022-01-16] MEDS: Loratadine 10 MG TABLET PO SCH (07:41)
[2022-01-16] MEDS: Clotrimazole 1% CRM 15 GM TUBE TP SCH ×2 (07:41→20:06)
[2022-01-16] MEDS: Baclofen 10 MG TABLET PO SCH ×3 (07:41→20:06)
[2022-01-16] MEDS: *HR* Rivaroxaban 10 MG TABLET PO SCH (15:20)
[2022-01-17 04:03] LABS: Basophils # 0.1 K/mcL (0.0-0.2); Basophils % 0.6 %; Eosinophils # 0.6 K/mcL (0.0-0.6); Eosinophils % 4.9 %; Hematocrit 33.5 % (35.3-44.9); Hemoglobin 10.3 g/dL (11.5-15.4); Immature Granulocytes % 0.7 % (0-4); Lymphocytes # 1.6 K/mcL (0.6-4.6); Lymphocytes % 12.6 %; Mean Corpuscular HGB Conc 30.7 g/dL (31.6-35.5); Mean Corpuscular Hemoglobin 29.2 pg (28.0-33.3); Mean Corpuscular Volume 94.9 fL (83.0-100.0); Mean Platelet Volume 9.5 fL (9.4-12.4); Monocytes # 0.9 K/mcL (0.0-1.3); Monocytes % 7.5 %; Neutrophils # 9.1 K/mcL (1.6-8.9); Platelet Count 478 K/mcL (140-400); Red Blood Count 3.53 M/mcL (3.82-4.97); Red Cell Distribution Width 15.9 % (11.5-14.5); Segmented Neutrophils % 73.7 %; White Blood Count 12.3 K/mcL (4.3-11.1)
[2022-01-17 04:22] LABS: BUN/Creatinine Ratio 37 (6-26); Blood Urea Nitrogen 18 mg/dL (8-23); Calcium 8.8 mg/dL (8.6-10.3); Carbon Dioxide 33 mEq/L (23-29); Chloride 96 mEq/L (98-107); Glucose 99 mg/dL (70-105); Osmolality,Calculated 294 (280-300); Potassium 3.5 mEq/L (3.5-5.1); Sodium 141 mEq/L (136-145); eGFR For African Americans > 60 (> 60); eGFR For Non-African Americans > 60 (> 60)
[2022-01-17] MEDS: Fluconazole 100 MG TABLET PO SCH (09:51)
[2022-01-17] MEDS: Gabapentin 300 MG CAPSULE PO SCH ×2 (09:51→21:11)
[2022-01-17] MEDS: Baclofen 10 MG TABLET PO SCH ×3 (09:51→21:11)
[2022-01-17] MEDS: Loratadine 10 MG TABLET PO SCH (09:51)
[2022-01-17] MEDS: Ertapenem 1,000 MG in 0.9 % Sodium Chloride Mini Bag 100 ML IVPB SCH (09:51)
[2022-01-17] MEDS: Furosemide 20 MG/2 ML VIAL IVP SCH (09:52)
[2022-01-17] MEDS: Clotrimazole 1% CRM 15 GM TUBE TP SCH ×2 (09:52→21:11)
[2022-01-17] MEDS: *HR* Rivaroxaban 10 MG TABLET PO SCH (16:50)
[2022-01-17] MEDS ORDERED: Melatonin 3 MG TABLET PO SCH (21:00)
[2022-01-18 04:12] LABS: Basophils # 0.1 K/mcL (0.0-0.2); Basophils % 0.6 %; Eosinophils # 0.7 K/mcL (0.0-0.6); Eosinophils % 4.8 %; Hematocrit 36.6 % (35.3-44.9); Hemoglobin 11.2 g/dL (11.5-15.4); Immature Granulocytes % 0.5 % (0-4); Lymphocytes # 1.8 K/mcL (0.6-4.6); Lymphocytes % 13.3 %; Mean Corpuscular HGB Conc 30.6 g/dL (31.6-35.5); Mean Corpuscular Hemoglobin 28.8 pg (28.0-33.3); Mean Corpuscular Volume 94.1 fL (83.0-100.0); Mean Platelet Volume 9.5 fL (9.4-12.4); Monocytes # 0.9 K/mcL (0.0-1.3); Monocytes % 6.8 %; Neutrophils # 10.1 K/mcL (1.6-8.9); Platelet Count 563 K/mcL (140-400); Red Blood Count 3.89 M/mcL (3.82-4.97); Red Cell Distribution Width 15.9 % (11.5-14.5); White Blood Count 13.6 K/mcL (4.3-11.1)
[2022-01-18 04:30] LABS: BUN/Creatinine Ratio 35 (6-26); Blood Urea Nitrogen 21 mg/dL (8-23); Calcium 9.1 mg/dL (8.6-10.3); Carbon Dioxide 34 mEq/L (23-29); Chloride 94 mEq/L (98-107); Glucose 118 mg/dL (70-105); Osmolality,Calculated 300 (280-300); Sodium 143 mEq/L (136-145); eGFR For African Americans > 60 (> 60); eGFR For Non-African Americans > 60 (> 60)
[2022-01-18] MEDS ORDERED: Ringers Solution, Lactated 1,000 ML IVC SCH (08:30)
[2022-01-18] MEDS ORDERED: Ringers Solution, Lactated 500 ML IVC SCH (08:30)
[2022-01-18] MEDS ORDERED: Potassium Chloride Elixir 20 MEQ/15 ML UDC PO ONE (09:00)
[2022-01-18 09:53] LABS: Basophils # 0.1 K/mcL (0.0-0.2); Basophils % 0.5 %; Eosinophils # 0.5 K/mcL (0.0-0.6); Eosinophils % 3.5 %; Hematocrit 36.1 % (35.3-44.9); Hemoglobin 10.9 g/dL (11.5-15.4); Immature Granulocytes % 0.6 % (0-4); Lymphocytes # 1.5 K/mcL (0.6-4.6); Lymphocytes % 10.8 %; Mean Corpuscular HGB Conc 30.2 g/dL (31.6-35.5); Mean Corpuscular Hemoglobin 29.1 pg (28.0-33.3); Mean Corpuscular Volume 96.3 fL (83.0-100.0); Mean Platelet Volume 8.8 fL (9.4-12.4); Monocytes # 0.8 K/mcL (0.0-1.3); Monocytes % 5.7 %; Neutrophils # 10.7 K/mcL (1.6-8.9); Platelet Count 463 K/mcL (140-400); Red Blood Count 3.75 M/mcL (3.82-4.97); Red Cell Distribution Width 15.9 % (11.5-14.5); Segmented Neutrophils % 78.9 %; White Blood Count 13.6 K/mcL (4.3-11.1)
[2022-01-18 10:02] LABS: INR 2.1; Prothrombin Time 23.2 Seconds (9.4-12.1)
[2022-01-18 10:02] LABS: VBG HCO3 35 mEq/L (21-27); VBG PCO2 56 mmHg (41-51); VBG PO2 126 mmHg (25-50)
[2022-01-18 10:18] LABS: Alanine Aminotransferase 9 Units/L (7-52); Albumin 3.5 g/dL (3.5-5.7); Albumin/Globulin Ratio 0.9 (1.1-2.2); Alkaline Phosphatase 99 Units/L (34-104); Aspartate Amino Transferase 17 Units/L (13-39); BUN/Creatinine Ratio 39 (6-26); Bilirubin,Total 0.3 mg/dL (0.3-1.0); Blood Urea Nitrogen 23 mg/dL (8-23); Calcium 8.8 mg/dL (8.6-10.3); Carbon Dioxide 37 mEq/L (23-29); Chloride 97 mEq/L (98-107); Globulin 3.8 g/dL (2.4-3.5); Glucose 116 mg/dL (70-105); Osmolality,Calculated 303 (280-300); Potassium 3.1 mEq/L (3.5-5.1); Sodium 144 mEq/L (136-145); Total Protein 7.3 g/dL (6.4-8.9); eGFR For African Americans > 60 (> 60); eGFR For Non-African Americans > 60 (> 60)
[2022-01-18 10:24] LABS: Troponin I < 0.03 ng/mL (< 0.04)
[2022-01-18 10:27] VITALS: BP 103/52; TEMP 98.6; O2SAT 98
[2022-01-18 10:33] VITALS: PULSE 69
== END 2022-01-18 11:15 | disposition short-term general hospital (02) | DRG 698 ==
LOC: 2ANU → SUATTDRO 17:01
PROVIDERS: ADMIT Internal Medicine; ATTEND Internal Medicine

== ENCOUNTER 2022-02-04 19:47 | Inpatient (IN) ==
[2022-02-04] MEDS ORDERED: 0.9 % Sodium Chloride 1,000 ML IVC ONE (20:10)
[2022-02-04] MEDS ORDERED: Iopamidol - 370 500 ML MLS IVP ONE (20:11)
[2022-02-04] MEDS ORDERED: cefTRIAXone 2,000 MG in 0.9 % Sodium Chloride 20 ML IVP ONE (20:14)
[2022-02-04] MEDS ORDERED: Ondansetron 4 MG/2 ML VIAL IVP ONE (20:30)
[2022-02-04 20:35] LABS: Basophils # 0.1 K/mcL (0.0-0.2); Basophils % 0.3 %; Eosinophils # 0.6 K/mcL (0.0-0.6); Eosinophils % 3.3 %; Hematocrit 34.5 % (35.3-44.9); Hemoglobin 10.9 g/dL (11.5-15.4); Immature Granulocytes % 0.5 % (0-4); Lymphocytes # 1.6 K/mcL (0.6-4.6); Lymphocytes % 9.3 %; Mean Corpuscular HGB Conc 31.6 g/dL (31.6-35.5); Mean Corpuscular Hemoglobin 29.3 pg (28.0-33.3); Mean Corpuscular Volume 92.7 fL (83.0-100.0); Mean Platelet Volume 9.3 fL (9.4-12.4); Monocytes # 1.2 K/mcL (0.0-1.3); Monocytes % 6.9 %; Neutrophils # 13.5 K/mcL (1.6-8.9); Platelet Count 352 K/mcL (140-400); Red Blood Count 3.72 M/mcL (3.82-4.97); Red Cell Distribution Width 15.2 % (11.5-14.5); Segmented Neutrophils % 79.7 %; White Blood Count 16.9 K/mcL (4.3-11.1)
[2022-02-04 20:47] LABS: INR 2.1; Prothrombin Time 22.9 Seconds (9.4-12.1)
[2022-02-04 20:49] LABS: Alanine Aminotransferase 18 Units/L (7-52); Albumin 3.3 g/dL (3.5-5.7); Alkaline Phosphatase 97 Units/L (34-104); Aspartate Amino Transferase 20 Units/L (13-39); BUN/Creatinine Ratio 30 (6-26); Bilirubin,Direct 0.1 mg/dL (0.0-0.2); Bilirubin,Indirect 0.1 mg/dL (0.0-1.0); Bilirubin,Total 0.2 mg/dL (0.3-1.0); Blood Urea Nitrogen 18 mg/dL (8-23); Calcium 8.8 mg/dL (8.6-10.3); Carbon Dioxide 28 mEq/L (23-29); Chloride 97 mEq/L (98-107); Globulin 3.4 g/dL (2.4-3.5); Glucose 292 mg/dL (70-105); Lipase 38 Units/L (11-82); Osmolality,Calculated 289 (280-300); Potassium 4.2 mEq/L (3.5-5.1); Sodium 133 mEq/L (136-145); Total Protein 6.7 g/dL (6.4-8.9); Troponin I < 0.03 ng/mL (< 0.04); eGFR For African Americans > 60 (> 60); eGFR For Non-African Americans > 60 (> 60)
[2022-02-04 21:14] LABS: Bacteria,Urine Few per hpf (None-Few); Bilirubin,Urine Negative (Negative); Blood,Urine Negative (Negative); Budding Yeast,Urine Many per hpf (None Seen); Clarity,Urine Clear (Clear); Color,Urine Light-Yellow (Yellow); Glucose,Urine (UA) 300 mg/dL (Normal); Hyaline Casts,Urine Moderate per lpf (None Seen); Ketones,Urine Negative (Negative); Leukocyte Esterase,Urine Large (Negative); Mucus,Urine Few per lpf (None-Few); Nitrite,Urine Negative (Negative); Protein,Urine 30 mg/dL (Neg-Trace); Specific Gravity,Urine 1.019 (1.010-1.025); Squamous Epithelial Cell,Urine Few per hpf (None-Few); Transitional Epi Cells,Urine Few per hpf (None-Few); Urobilinogen,Urine Normal (Normal); WBC,Urine 50-100 per hpf (0-3)
[2022-02-04 21:16] LABS: Influenza A PCR Negative (Negative); Influenza B PCR Negative (Negative); Resp. Syncytial Virus PCR Negative (Negative)
[2022-02-04 21:20] LABS: SARS-CoV-2 by PCR (In House) Negative (Negative)
[2022-02-04] MEDS ORDERED: 0.9 % Sodium Chloride 1,000 ML IV ONE (23:35)
[2022-02-04] MEDS ORDERED: *HR* HYDROcodone/Acet 5/325 mg TABLET PO PRN (23:37)
[2022-02-04] MEDS ORDERED: Naloxone 0.4 MG/ML INJ IVP PRN (23:37)
[2022-02-04] MEDS ORDERED: *HR* OxyCODONE Immed Rel 5 MG TABLET PO PRN (23:37)
[2022-02-04] MEDS ORDERED: Acetaminophen 325 MG TABLET PO PRN (23:37)
[2022-02-05] MEDS: 0.9 % Sodium Chloride 1,000 ML IVC SCH ×2 (04:20→11:17)
[2022-02-05] MEDS ORDERED: cefTRIAXone 2,000 MG in 0.9 % Sodium Chloride Mini Bag 100 ML IVPB SCH (09:00)
[2022-02-05 09:27] LABS: Hematocrit 33.3 % (35.3-44.9); Hemoglobin 10.2 g/dL (11.5-15.4); Mean Corpuscular HGB Conc 30.6 g/dL (31.6-35.5); Mean Corpuscular Hemoglobin 29.1 pg (28.0-33.3); Mean Corpuscular Volume 95.1 fL (83.0-100.0); Mean Platelet Volume 9.4 fL (9.4-12.4); Platelet Count 292 K/mcL (140-400); Red Cell Distribution Width 15.2 % (11.5-14.5); White Blood Count 11.3 K/mcL (4.3-11.1)
[2022-02-05 09:47] LABS: BUN/Creatinine Ratio 32 (6-26); Blood Urea Nitrogen 13 mg/dL (8-23); Calcium 8.1 mg/dL (8.6-10.3); Carbon Dioxide 25 mEq/L (23-29); Chloride 106 mEq/L (98-107); Glucose 160 mg/dL (70-105); Magnesium 1.9 mg/dL (1.6-2.6); Osmolality,Calculated 292 (280-300); Phosphorous 3.7 mg/dL (2.7-4.5); Potassium 3.3 mEq/L (3.5-5.1); Sodium 139 mEq/L (136-145); eGFR For African Americans > 60 (> 60); eGFR For Non-African Americans > 60 (> 60)
[2022-02-05] MEDS ORDERED: *HR* HYDROcodone/Acet 5/325 mg TABLET PO PRN (10:49)
[2022-02-05] MEDS ORDERED: Saliva Stimulant 44.3ml BOTTLE MM PRN (15:05)
[2022-02-05] MEDS: Piperacillin/Tazobactam 3.375 GM in 0.9 % Sodium Chloride Mini Bag 100 ML IVPB SCH (15:09)
[2022-02-05] MEDS: *HR* Rivaroxaban 10 MG TABLET PO SCH (16:22)
[2022-02-05 18:19] LABS: Enterococcus faecalis by PCR Not Detected (Not Detect); Enterococcus faecium by PCR Not Detected (Not Detect); Staph epidermidis by PCR DETECTED (Not Detect); Staphylococcus aureus by PCR Not Detected (Not Detect); mecA/C Methicillin-Resist Gene DETECTED (Not Detect)
[2022-02-05 18:20] LABS: A.calcoaceticus-baumannii cplx Not Detected (Not Detect); Bacteroides fragilis by PCR Not Detected (Not Detect); Candida albicans by PCR Not Detected (Not Detect); Candida auris by PCR Not Detected (Not Detect); Candida glabrata by PCR Not Detected (Not Detect); Candida krusei by PCR Not Detected (Not Detect); Candida parapsilosis by PCR Not Detected (Not Detect); Candida tropicalis by PCR Not Detected (Not Detect); Crypto. neoformans/gattii PCR Not Detected (Not Detect); Enterobacter cloacae Cmplx PCR Not Detected (Not Detect); Enterobacterales by PCR Not Detected (Not Detect); Escherichia coli by PCR Not Detected (Not Detect); Klebs. pneumoniae group by PCR Not Detected (Not Detect); Klebsiella aerogenes by PCR Not Detected (Not Detect); Klebsiella oxytoca by PCR Not Detected (Not Detect); Proteus by PCR Not Detected (Not Detect); Pseudomonas aeruginosa by PCR Not Detected (Not Detect); Salmonella species by PCR Not Detected (Not Detect); Serratia marcescens by PCR Not Detected (Not Detect); Staph lugdunensis by PCR Not Detected (Not Detect); Stenotrophomonas maltophilia Not Detected (Not Detect); Streptococcus agalactiae(B)PCR Not Detected (Not Detect); Streptococcus by PCR Not Detected (Not Detect); Streptococcus pneumoniae PCR Not Detected (Not Detect); Streptococcus pyogenes (A) PCR Not Detected (Not Detect)
[2022-02-05] MEDS: Gabapentin 100 MG CAPSULE PO SCH (21:05)
[2022-02-05] MEDS: Baclofen 10 MG TABLET PO PRN (21:05)
[2022-02-05] MEDS: Melatonin 3 MG TABLET PO PRN (21:05)
[2022-02-06] MEDS: Piperacillin/Tazobactam 3.375 GM in 0.9 % Sodium Chloride Mini Bag 100 ML IVPB SCH ×3 (00:51→14:58)
[2022-02-06 02:22] LABS: Basophils # 0.1 K/mcL (0.0-0.2); Basophils % 0.4 %; Eosinophils % 8.2 %; Hematocrit 29.1 % (35.3-44.9); Hemoglobin 9.1 g/dL (11.5-15.4); Immature Granulocytes % 0.5 % (0-4); Lymphocytes # 1.6 K/mcL (0.6-4.6); Lymphocytes % 13.5 %; Mean Corpuscular HGB Conc 31.3 g/dL (31.6-35.5); Mean Corpuscular Hemoglobin 29.5 pg (28.0-33.3); Mean Corpuscular Volume 94.5 fL (83.0-100.0); Mean Platelet Volume 9.6 fL (9.4-12.4); Monocytes # 0.9 K/mcL (0.0-1.3); Monocytes % 7.1 %; Neutrophils # 8.4 K/mcL (1.6-8.9); Platelet Count 294 K/mcL (140-400); Red Blood Count 3.08 M/mcL (3.82-4.97); Red Cell Distribution Width 14.9 % (11.5-14.5); Segmented Neutrophils % 70.3 %
[2022-02-06 04:34] LABS: BUN/Creatinine Ratio 29 (6-26); Blood Urea Nitrogen 13 mg/dL (8-23); Calcium 8.2 mg/dL (8.6-10.3); Carbon Dioxide 24 mEq/L (23-29); Chloride 106 mEq/L (98-107); Glucose 149 mg/dL (70-105); Magnesium 1.8 mg/dL (1.6-2.6); Osmolality,Calculated 289 (280-300); Potassium 4.2 mEq/L (3.5-5.1); Sodium 138 mEq/L (136-145); eGFR For African Americans > 60 (> 60); eGFR For Non-African Americans > 60 (> 60)
[2022-02-06] MEDS: 0.9 % Sodium Chloride 1,000 ML IVC SCH ×2 (05:10→10:44)
[2022-02-06] MEDS ORDERED: *HR* HYDROcodone/Acet 5/325 mg TABLET PO PRN (07:20)
[2022-02-06] MEDS: Baclofen 10 MG TABLET PO PRN ×2 (08:46→16:16)
[2022-02-06] MEDS: Gabapentin 100 MG CAPSULE PO SCH ×3 (08:47→20:19)
[2022-02-06] MEDS: Ondansetron ODT 4 MG TAB.RAPDIS SL PRN (10:50)
[2022-02-06] MEDS: *HR* Rivaroxaban 10 MG TABLET PO SCH (16:16)
[2022-02-06] MEDS: Melatonin 3 MG TABLET PO PRN (20:19)
[2022-02-07] MEDS: Piperacillin/Tazobactam 3.375 GM in 0.9 % Sodium Chloride Mini Bag 100 ML IVPB SCH ×3 (00:27→14:45)
[2022-02-07 04:53] LABS: Basophils # 0.1 K/mcL (0.0-0.2); Basophils % 0.6 %; Eosinophils # 0.8 K/mcL (0.0-0.6); Eosinophils % 7.2 %; Hematocrit 28.7 % (35.3-44.9); Hemoglobin 8.9 g/dL (11.5-15.4); Immature Granulocytes % 0.4 % (0-4); Lymphocytes # 1.3 K/mcL (0.6-4.6); Lymphocytes % 11.7 %; Mean Corpuscular Hemoglobin 29.3 pg (28.0-33.3); Mean Corpuscular Volume 94.4 fL (83.0-100.0); Mean Platelet Volume 9.6 fL (9.4-12.4); Monocytes # 0.8 K/mcL (0.0-1.3); Monocytes % 7.7 %; Neutrophils # 7.9 K/mcL (1.6-8.9); Platelet Count 317 K/mcL (140-400); Red Blood Count 3.04 M/mcL (3.82-4.97); Red Cell Distribution Width 14.8 % (11.5-14.5); Segmented Neutrophils % 72.4 %; White Blood Count 10.8 K/mcL (4.3-11.1)
[2022-02-07 05:05] LABS: BUN/Creatinine Ratio 55 (6-26); Blood Urea Nitrogen 21 mg/dL (8-23); Calcium 8.2 mg/dL (8.6-10.3); Carbon Dioxide 27 mEq/L (23-29); Chloride 105 mEq/L (98-107); Glucose 179 mg/dL (70-105); Osmolality,Calculated 293 (280-300); Potassium 3.9 mEq/L (3.5-5.1); Sodium 138 mEq/L (136-145); eGFR For African Americans > 60 (> 60); eGFR For Non-African Americans > 60 (> 60)
[2022-02-07] MEDS: Gabapentin 100 MG CAPSULE PO SCH ×3 (08:00→20:20)
[2022-02-07] MEDS: Baclofen 10 MG TABLET PO PRN ×2 (08:01→17:28)
[2022-02-07] MEDS: 0.9 % Sodium Chloride 1,000 ML IVC SCH (08:38)
[2022-02-07] MEDS: *HR* Rivaroxaban 10 MG TABLET PO SCH (17:27)
[2022-02-07] MEDS: Melatonin 3 MG TABLET PO PRN (20:20)
[2022-02-08] MEDS: Piperacillin/Tazobactam 3.375 GM in 0.9 % Sodium Chloride Mini Bag 100 ML IVPB SCH ×4 (01:15→23:50)
[2022-02-08 03:53] LABS: Basophils # 0.1 K/mcL (0.0-0.2); Basophils % 0.6 %; Eosinophils # 0.7 K/mcL (0.0-0.6); Eosinophils % 8.5 %; Hematocrit 30.9 % (35.3-44.9); Hemoglobin 9.6 g/dL (11.5-15.4); Immature Granulocytes % 0.5 % (0-4); Lymphocytes # 1.4 K/mcL (0.6-4.6); Lymphocytes % 16.6 %; Mean Corpuscular HGB Conc 31.1 g/dL (31.6-35.5); Mean Corpuscular Hemoglobin 29.1 pg (28.0-33.3); Mean Corpuscular Volume 93.6 fL (83.0-100.0); Mean Platelet Volume 9.3 fL (9.4-12.4); Monocytes # 0.8 K/mcL (0.0-1.3); Monocytes % 8.8 %; Neutrophils # 5.6 K/mcL (1.6-8.9); Platelet Count 349 K/mcL (140-400); Red Cell Distribution Width 14.7 % (11.5-14.5); White Blood Count 8.6 K/mcL (4.3-11.1)
[2022-02-08 04:15] LABS: BUN/Creatinine Ratio 67 (6-26); Blood Urea Nitrogen 24 mg/dL (8-23); Calcium 8.6 mg/dL (8.6-10.3); Carbon Dioxide 27 mEq/L (23-29); Chloride 103 mEq/L (98-107); Glucose 98 mg/dL (70-105); Osmolality,Calculated 292 (280-300); Potassium 3.8 mEq/L (3.5-5.1); Sodium 139 mEq/L (136-145); eGFR For African Americans > 60 (> 60); eGFR For Non-African Americans > 60 (> 60)
[2022-02-08 04:19] LABS: Estimated Average Glucose 131 mg/dl; Hemoglobin A1C 6.2 %
[2022-02-08] MEDS: Gabapentin 100 MG CAPSULE PO SCH ×3 (09:35→22:11)
[2022-02-08] MEDS: Baclofen 10 MG TABLET PO PRN ×2 (09:42→22:14)
[2022-02-08 13:13] LABS: Adenovirus Not Detected (Not Detect); Bordetella Pertussis Not Detected (Not Detect); Chlamydophila pneumoniae Not Detected (Not Detect); Coronavirus 229E Not Detected (Not Detect); Coronavirus HKU1 Not Detected (Not Detect); Coronavirus NL63 Not Detected (Not Detect); Coronavirus OC43 Not Detected (Not Detect); Human Metapneumovirus Not Detected (Not Detect); Human Rhinovirus/Enterovirus Not Detected (Not Detect); Influenza A Subtype 2009 H1 Not Detected (Not Detect); Influenza B Not Detected (Not Detect); Mycoplasma pneumoniae Not Detected (Not Detect); Parainfluenza Virus 1 Not Detected (Not Detect); Parainfluenza Virus 2 Not Detected (Not Detect); Parainfluenza Virus 3 Not Detected (Not Detect); Parainfluenza Virus 4 Not Detected (Not Detect); Respiratory Syncytial Virus Not Detected (Not Detect); SARS-CoV-2 Not Detected (Not Detect)
[2022-02-08] MEDS: *HR* Rivaroxaban 10 MG TABLET PO SCH (17:13)
[2022-02-08] MEDS: Melatonin 3 MG TABLET PO PRN (22:14)
[2022-02-08] MEDS: Ondansetron ODT 4 MG TAB.RAPDIS SL PRN (23:54)
[2022-02-09 02:55] LABS: Basophils # 0.1 K/mcL (0.0-0.2); Basophils % 0.5 %; Eosinophils # 0.9 K/mcL (0.0-0.6); Eosinophils % 8.5 %; Hematocrit 29.3 % (35.3-44.9); Hemoglobin 9.1 g/dL (11.5-15.4); Immature Granulocytes % 0.7 % (0-4); Lymphocytes # 1.7 K/mcL (0.6-4.6); Lymphocytes % 15.5 %; Mean Corpuscular HGB Conc 31.1 g/dL (31.6-35.5); Mean Corpuscular Hemoglobin 29.3 pg (28.0-33.3); Mean Corpuscular Volume 94.2 fL (83.0-100.0); Mean Platelet Volume 9.1 fL (9.4-12.4); Monocytes # 0.8 K/mcL (0.0-1.3); Monocytes % 7.8 %; Neutrophils # 7.2 K/mcL (1.6-8.9); Platelet Count 347 K/mcL (140-400); Red Blood Count 3.11 M/mcL (3.82-4.97); Red Cell Distribution Width 14.8 % (11.5-14.5); White Blood Count 10.7 K/mcL (4.3-11.1)
[2022-02-09 03:17] LABS: BUN/Creatinine Ratio 68 (6-26); Blood Urea Nitrogen 28 mg/dL (8-23); Calcium 8.5 mg/dL (8.6-10.3); Carbon Dioxide 28 mEq/L (23-29); Chloride 101 mEq/L (98-107); Glucose 160 mg/dL (70-105); Osmolality,Calculated 291 (280-300); Sodium 136 mEq/L (136-145); eGFR For African Americans > 60 (> 60); eGFR For Non-African Americans > 60 (> 60)
[2022-02-09] MEDS: Piperacillin/Tazobactam 3.375 GM in 0.9 % Sodium Chloride Mini Bag 100 ML IVPB SCH (08:25)
[2022-02-09] MEDS: Gabapentin 100 MG CAPSULE PO SCH (08:25)
[2022-02-09] MEDS: Baclofen 10 MG TABLET PO PRN (08:25)
[2022-02-09 14:19] VITALS: BP 104/65; PULSE 88; TEMP 97.8; O2SAT 95
== END 2022-02-09 14:23 | DRG 871 ==
LOC: 2ANU 19:47 → EMEROOARM 19:47 → SUATTDRO 23:58 → 2ANU 02-05 01:30 → SUATTDRO 02-05 12:16
PROVIDERS: ADMIT Internal Medicine; ATTEND Family Medicine

== ENCOUNTER 2022-03-27 17:45 | Inpatient (IN) ==
[2022-03-27] MEDS ORDERED: Vancomycin 1,500 MG/265 ML IV.SOLN IVPB ONE (18:08)
[2022-03-27] MEDS ORDERED: 0.9 % Sodium Chloride 1,000 ML IVC ONE ×3 (18:09→20:35)
[2022-03-27] MEDS ORDERED: cefTRIAXone 1,000 MG in 0.9 % Sodium Chloride 10 ML IVP ONE (18:12)
[2022-03-27] MEDS ORDERED: Iopamidol - 370 500 ML MLS IVP ONE ×2 (18:23→18:33)
[2022-03-27 18:33] LABS: Basophils # 0.1 K/mcL (0.0-0.2); Basophils % 0.5 %; Eosinophils # 0.4 K/mcL (0.0-0.6); Eosinophils % 2.5 %; Hematocrit 40.7 % (35.3-44.9); Hemoglobin 12.3 g/dL (11.5-15.4); Immature Granulocytes % 0.5 % (0-4); Lymphocytes # 1.9 K/mcL (0.6-4.6); Lymphocytes % 10.9 %; Mean Corpuscular HGB Conc 30.2 g/dL (31.6-35.5); Mean Corpuscular Hemoglobin 28.2 pg (28.0-33.3); Mean Corpuscular Volume 93.3 fL (83.0-100.0); Mean Platelet Volume 9.6 fL (9.4-12.4); Monocytes # 1.3 K/mcL (0.0-1.3); Monocytes % 7.1 %; Neutrophils # 13.9 K/mcL (1.6-8.9); Platelet Count 475 K/mcL (140-400); Red Blood Count 4.36 M/mcL (3.82-4.97); Red Cell Distribution Width 14.8 % (11.5-14.5); Segmented Neutrophils % 78.5 %; White Blood Count 17.7 K/mcL (4.3-11.1)
[2022-03-27 18:54] LABS: BUN/Creatinine Ratio 25 (6-26); Blood Urea Nitrogen 22 mg/dL (8-23); Calcium 9.3 mg/dL (8.6-10.3); Carbon Dioxide 27 mEq/L (23-29); Chloride 99 mEq/L (98-107); Glucose 187 mg/dL (70-105); Osmolality,Calculated 288 (280-300); Potassium 4.6 mEq/L (3.5-5.1); Sodium 135 mEq/L (136-145); Troponin I < 0.03 ng/mL (< 0.04)
[2022-03-27 19:04] LABS: Bacteria,Urine Few per hpf (None-Few); Bilirubin,Urine Negative (Negative); Blood,Urine Small (Negative); Budding Yeast,Urine Few per hpf (None Seen); Clarity,Urine Ex.Turbid (Clear); Color,Urine Yellow (Yellow); Glucose,Urine (UA) 30 mg/dL (Normal); Hyaline Casts,Urine Many per lpf (None Seen); Ketones,Urine Trace mg/dL (Negative); Leukocyte Esterase,Urine Large (Negative); Mucus,Urine Few per lpf (None-Few); Nitrite,Urine Negative (Negative); Protein,Urine 200 mg/dL (Neg-Trace); RBC,Urine 30-50 per hpf (0-3); Specific Gravity,Urine 1.021 (1.010-1.025); Squamous Epithelial Cell,Urine Moderate per hpf (None-Few); Transitional Epi Cells,Urine Few per hpf (None-Few); WBC,Urine TNTC per hpf (0-3)
[2022-03-27 19:08] LABS: Thyroid Stimulating Hormone 4.494 mcIU/mL (0.340-5.600)
[2022-03-27] MEDS ORDERED: Norepinephrine 4 MG/254 ML IV.SOLN IVC ONE (21:09)
[2022-03-27] MEDS: Norepinephrine 4 MG/254 ML IV.SOLN IVC SCH (21:17)
[2022-03-27] MEDS ORDERED: cefTRIAXone 1,000 MG in Water for inj. (sterile) 10 ML IVP ONE (22:43)
[2022-03-27] MEDS ORDERED: 0.9 % Sodium Chloride 500 ML IVC ONE (22:44)
[2022-03-27 23:36] LABS: Troponin I < 0.03 ng/mL (< 0.04)
[2022-03-27 23:50] LABS: Thyroid Stimulating Hormone 3.109 mcIU/mL (0.340-5.600)
[2022-03-28] MEDS ORDERED: Naloxone 0.4 MG/ML INJ IVP PRN (01:13)
[2022-03-28] MEDS ORDERED: Mag Hydrox/Al Hydrox/Simeth 30 ML UDC PO PRN (01:34)
[2022-03-28] MEDS ORDERED: Ondansetron 4 MG/2 ML VIAL IVP PRN (01:34)
[2022-03-28] MEDS ORDERED: D5% in Water 1,000 ML IVC PRN (01:42)
[2022-03-28] MEDS ORDERED: *HR* Dextrose 50 % in Water (Syg) 50 ML SYRINGE IVP PRN (01:42)
[2022-03-28] MEDS ORDERED: Dextrose Gel 15 GM/37.5 ML TUBE PO PRN ×2 (01:42)
[2022-03-28] MEDS ORDERED: Piperacillin/Tazobactam 3.375 GM in 0.9 % Sodium Chloride Mini Bag 100 ML IVPB SCH (01:53)
[2022-03-28] MEDS: Ringers Solution, Lactated 1,000 ML IVC SCH ×2 (04:46→17:23)
[2022-03-28] MEDS: Piperacillin/Tazobactam 3.375 GM in 0.9 % Sodium Chloride Mini Bag 100 ML IVPB SCH ×3 (04:47→20:33)
[2022-03-28 05:16] LABS: Basophils # 0.1 K/mcL (0.0-0.2); Basophils % 0.6 %; Eosinophils # 0.3 K/mcL (0.0-0.6); Eosinophils % 2.7 %; Hematocrit 34.4 % (35.3-44.9); Immature Granulocytes % 0.5 % (0-4); Lymphocytes # 1.4 K/mcL (0.6-4.6); Lymphocytes % 13.7 %; Mean Corpuscular HGB Conc 29.9 g/dL (31.6-35.5); Mean Corpuscular Hemoglobin 27.8 pg (28.0-33.3); Mean Corpuscular Volume 92.7 fL (83.0-100.0); Mean Platelet Volume 9.8 fL (9.4-12.4); Monocytes # 0.7 K/mcL (0.0-1.3); Neutrophils # 7.8 K/mcL (1.6-8.9); Platelet Count 398 K/mcL (140-400); Red Blood Count 3.71 M/mcL (3.82-4.97); Segmented Neutrophils % 75.5 %; White Blood Count 10.4 K/mcL (4.3-11.1)
[2022-03-28 05:17] LABS: Hemoglobin 10.3 g/dL (11.5-15.4)
[2022-03-28 05:23] LABS: INR 1.7; Prothrombin Time 18.6 Seconds (9.4-12.1)
[2022-03-28 05:26] LABS: Activated Partial Thrombo Time 38.3 Seconds (26.0-36.0)
[2022-03-28 05:35] LABS: Alanine Aminotransferase 5 Units/L (7-52); Albumin 3.1 g/dL (3.5-5.7); Alkaline Phosphatase 90 Units/L (34-104); Aspartate Amino Transferase 9 Units/L (13-39); BUN/Creatinine Ratio 35 (6-26); Bilirubin,Total 0.3 mg/dL (0.3-1.0); Blood Urea Nitrogen 24 mg/dL (8-23); Calcium 8.6 mg/dL (8.6-10.3); Carbon Dioxide 26 mEq/L (23-29); Chloride 103 mEq/L (98-107); Globulin 3.2 g/dL (2.4-3.5); Glucose 132 mg/dL (70-105); Osmolality,Calculated 290 (280-300); Phosphorous 4.4 mg/dL (2.7-4.5); Potassium 4.2 mEq/L (3.5-5.1); Sodium 137 mEq/L (136-145); Total Protein 6.3 g/dL (6.4-8.9)
[2022-03-28] MEDS: *HR* Rivaroxaban 10 MG TABLET PO SCH (07:41)
[2022-03-28] MEDS: Pantoprazole 40 MG VIAL IVP SCH (07:42)
[2022-03-28] MEDS: Insulin LISPRO 300 UNITS/3 ML VIAL SUBQ SCH ×4 (07:42→20:19)
[2022-03-28] MEDS ORDERED: MetroNIDAZOLE 500 MG/100 ML 500 MG/100 ML BAG IVPB SCH (08:00)
[2022-03-28] MEDS ORDERED: Cefepime HCl 2,000 MG in 0.9 % Sodium Chloride 10 ML IVP SCH (08:00)
[2022-03-28] MEDS: Norepinephrine 4 MG/254 ML IV.SOLN IVC SCH (11:46)
[2022-03-28] MEDS: *HR* HYDROcodone/Acet 5/325 mg TABLET PO PRN (20:33)
[2022-03-28] MEDS: Melatonin 3 MG TABLET PO PRN (20:33)
[2022-03-28] MEDS: Baclofen 10 MG TABLET PO PRN (20:33)
[2022-03-29 03:03] LABS: Basophils # 0.1 K/mcL (0.0-0.2); Basophils % 0.8 %; Eosinophils # 0.5 K/mcL (0.0-0.6); Eosinophils % 5.3 %; Hematocrit 33.3 % (35.3-44.9); Hemoglobin 10.2 g/dL (11.5-15.4); Immature Granulocytes % 0.4 % (0-4); Lymphocytes # 1.4 K/mcL (0.6-4.6); Mean Corpuscular HGB Conc 30.6 g/dL (31.6-35.5); Mean Corpuscular Hemoglobin 27.7 pg (28.0-33.3); Mean Corpuscular Volume 90.5 fL (83.0-100.0); Mean Platelet Volume 9.3 fL (9.4-12.4); Monocytes % 10.9 %; Neutrophils # 6.3 K/mcL (1.6-8.9); Platelet Count 389 K/mcL (140-400); Red Blood Count 3.68 M/mcL (3.82-4.97); Red Cell Distribution Width 14.7 % (11.5-14.5); Segmented Neutrophils % 67.6 %; White Blood Count 9.3 K/mcL (4.3-11.1)
[2022-03-29 03:18] LABS: Alanine Aminotransferase 7 Units/L (7-52); Albumin 3.1 g/dL (3.5-5.7); Albumin/Globulin Ratio 0.9 (1.1-2.2); Alkaline Phosphatase 89 Units/L (34-104); Aspartate Amino Transferase 9 Units/L (13-39); BUN/Creatinine Ratio 39 (6-26); Bilirubin,Total 0.3 mg/dL (0.3-1.0); Blood Urea Nitrogen 21 mg/dL (8-23); Calcium 8.8 mg/dL (8.6-10.3); Carbon Dioxide 27 mEq/L (23-29); Chloride 102 mEq/L (98-107); Globulin 3.4 g/dL (2.4-3.5); Glucose 111 mg/dL (70-105); Magnesium 2.2 mg/dL (1.6-2.6); Osmolality,Calculated 288 (280-300); Potassium 4.7 mEq/L (3.5-5.1); Sodium 137 mEq/L (136-145); Total Protein 6.5 g/dL (6.4-8.9)
[2022-03-29] MEDS: Piperacillin/Tazobactam 3.375 GM in 0.9 % Sodium Chloride Mini Bag 100 ML IVPB SCH ×3 (04:41→22:11)
[2022-03-29] MEDS: *HR* HYDROcodone/Acet 5/325 mg TABLET PO PRN ×2 (04:46→11:49)
[2022-03-29] MEDS: Insulin LISPRO 300 UNITS/3 ML VIAL SUBQ SCH ×4 (07:35→20:27)
[2022-03-29] MEDS: Pantoprazole 40 MG VIAL IVP SCH (08:06)
[2022-03-29] MEDS: *HR* Rivaroxaban 10 MG TABLET PO SCH (08:07)
[2022-03-29] MEDS: Acetaminophen 325 MG TABLET PO PRN ×2 (16:25→23:42)
[2022-03-29] MEDS: Melatonin 3 MG TABLET PO PRN (20:46)
[2022-03-29] MEDS: Baclofen 10 MG TABLET PO PRN (20:46)
[2022-03-29] MEDS: Gabapentin 100 MG CAPSULE PO SCH (20:46)
[2022-03-29] MEDS ORDERED: traZODone 50 MG TABLET PO PRN (22:44)
[2022-03-30] MEDS: Piperacillin/Tazobactam 3.375 GM in 0.9 % Sodium Chloride Mini Bag 100 ML IVPB SCH (05:28)
[2022-03-30 07:18] VITALS: TEMP 97.8
[2022-03-30] MEDS: Gabapentin 100 MG CAPSULE PO SCH ×2 (07:40→15:48)
[2022-03-30] MEDS: *HR* Rivaroxaban 10 MG TABLET PO SCH (07:41)
[2022-03-30] MEDS: Baclofen 10 MG TABLET PO PRN (07:43)
[2022-03-30] MEDS: Insulin LISPRO 300 UNITS/3 ML VIAL SUBQ SCH ×2 (08:47→11:42)
[2022-03-30] MEDS ORDERED: levoFLOXacin 750 MG TABLET PO SCH (09:00)
[2022-03-30 12:50] VITALS: BP 162/71; PULSE 82; O2SAT 93
[2022-03-30 16:16] LABS: Adenovirus Not Detected (Not Detect); Bordetella Pertussis Not Detected (Not Detect); Chlamydophila pneumoniae Not Detected (Not Detect); Coronavirus 229E Not Detected (Not Detect); Coronavirus HKU1 Not Detected (Not Detect); Coronavirus NL63 Not Detected (Not Detect); Coronavirus OC43 Not Detected (Not Detect); Human Metapneumovirus Not Detected (Not Detect); Human Rhinovirus/Enterovirus Not Detected (Not Detect); Influenza A Subtype 2009 H1 Not Detected (Not Detect); Influenza B Not Detected (Not Detect); Mycoplasma pneumoniae Not Detected (Not Detect); Parainfluenza Virus 1 Not Detected (Not Detect); Parainfluenza Virus 2 Not Detected (Not Detect); Parainfluenza Virus 3 Not Detected (Not Detect); Parainfluenza Virus 4 Not Detected (Not Detect); Respiratory Syncytial Virus Not Detected (Not Detect); SARS-CoV-2 Not Detected (Not Detect)
== END 2022-03-30 16:04 | disposition home health service (06) | DRG 698 ==
LOC: EMEROOARM 17:45 → ICNU 17:45 → SUATTDRO 03-28 01:34 → ICNU 03-28 01:52 → 2NNU 03-28 19:10
PROVIDERS: ADMIT Internal Medicine; ATTEND Internal Medicine

== ENCOUNTER 2022-04-20 14:14 | Inpatient (IN) ==
[2022-04-20] MEDS ORDERED: Norepinephrine 4 MG/254 ML IV.SOLN IVC ONE (16:36)
[2022-04-20] MEDS ORDERED: 0.9 % Sodium Chloride 1,000 ML ONE (16:37)
[2022-04-20] MEDS ORDERED: 0.9 % Sodium Chloride 500 ML IVC ONE (16:48)
[2022-04-20] MEDS ORDERED: Naloxone 0.4 MG/ML INJ IVP PRN (17:02)
[2022-04-20] MEDS ORDERED: 0.9 % Sodium Chloride w KCl 20 MEQ/1,000 ML MLS IVC SCH (17:15)
[2022-04-20] MEDS ORDERED: Norepinephrine 4 MG/254 ML IV.SOLN IVC SCH (17:15)
[2022-04-20] MEDS ORDERED: 0.9 % Sodium Chloride 1,000 ML IVC SCH (17:30)
[2022-04-20] MEDS: Norepinephrine 4 MG/254 ML IV.SOLN IVC SCH (17:46)
[2022-04-20] MEDS ORDERED: Ondansetron 4 MG/2 ML VIAL IVP PRN (17:55)
[2022-04-20] MEDS: levoFLOXacin 500 MG/100 ML 500 MG/100 ML BAG IVPB SCH (21:20)
[2022-04-21 03:40] LABS: Hematocrit 33.9 % (35.3-44.9); Hemoglobin 10.2 g/dL (11.5-15.4); Mean Corpuscular HGB Conc 30.1 g/dL (31.6-35.5); Mean Corpuscular Hemoglobin 27.4 pg (28.0-33.3); Mean Corpuscular Volume 91.1 fL (83.0-100.0); Mean Platelet Volume 9.6 fL (9.4-12.4); Platelet Count 386 K/mcL (140-400); Red Blood Count 3.72 M/mcL (3.82-4.97); Red Cell Distribution Width 15.4 % (11.5-14.5); White Blood Count 10.5 K/mcL (4.3-11.1)
[2022-04-21 03:51] LABS: INR 1.2; Prothrombin Time 13.1 Seconds (9.4-12.1)
[2022-04-21 03:58] LABS: BUN/Creatinine Ratio 46 (6-26); Blood Urea Nitrogen 23 mg/dL (8-23); Calcium 8.2 mg/dL (8.6-10.3); Carbon Dioxide 22 mEq/L (23-29); Chloride 110 mEq/L (98-107); Glucose 115 mg/dL (70-105); Osmolality,Calculated 297 (280-300); Potassium 4.2 mEq/L (3.5-5.1); Sodium 141 mEq/L (136-145)
[2022-04-21] MEDS: Norepinephrine 4 MG/254 ML IV.SOLN IVC SCH (04:20)
[2022-04-21] MEDS ORDERED: *HR* Rivaroxaban 10 MG TABLET PO SCH (17:00)
[2022-04-21] MEDS: levoFLOXacin 500 MG/100 ML 500 MG/100 ML BAG IVPB SCH (19:54)
[2022-04-22 05:56] LABS: Hematocrit 32.2 % (35.3-44.9); Hemoglobin 10.1 g/dL (11.5-15.4); Mean Corpuscular HGB Conc 31.4 g/dL (31.6-35.5); Mean Corpuscular Hemoglobin 28.5 pg (28.0-33.3); Mean Corpuscular Volume 90.7 fL (83.0-100.0); Mean Platelet Volume 9.3 fL (9.4-12.4); Platelet Count 321 K/mcL (140-400); Red Blood Count 3.55 M/mcL (3.82-4.97); Red Cell Distribution Width 15.5 % (11.5-14.5); White Blood Count 8.8 K/mcL (4.3-11.1)
[2022-04-22 06:11] LABS: BUN/Creatinine Ratio 45 (6-26); Blood Urea Nitrogen 21 mg/dL (8-23); Carbon Dioxide 27 mEq/L (23-29); Chloride 103 mEq/L (98-107); Glucose 99 mg/dL (70-105); Osmolality,Calculated 285 (280-300); Sodium 136 mEq/L (136-145)
[2022-04-22] MEDS ORDERED: Nystatin POWDER 30 GM BOTTLE TP PRN (07:10)
[2022-04-22] MEDS ORDERED: CLINDAMYCIN PHOSPHATE TP PRN ×2 (07:10→10:13)
[2022-04-22] MEDS ORDERED: Clotrimazole 1% CRM 15 GM TUBE TP PRN ×2 (07:10→10:13)
[2022-04-22] MEDS ORDERED: Loratadine 10 MG TABLET PO PRN ×2 (07:33→07:57)
[2022-04-22] MEDS ORDERED: Clobetasol Propionate 0.05% 15 GM Cream Tube TP PRN ×2 (07:34→10:13)
[2022-04-22] MEDS ORDERED: traZODone 50 MG TABLET PO PRN (07:52)
[2022-04-22] MEDS ORDERED: Naloxone 0.4 MG/ML INJ IVP PRN (07:52)
[2022-04-22] MEDS ORDERED: Ondansetron 4 MG/2 ML VIAL IVP PRN (07:52)
[2022-04-22] MEDS ORDERED: Gabapentin 100 MG CAPSULE PO SCH (09:00)
[2022-04-22] MEDS: Baclofen 10 MG TABLET PO SCH ×4 (09:30→20:13)
[2022-04-22] MEDS: Melatonin 3 MG TABLET PO SCH ×2 (09:33→20:13)
[2022-04-22] MEDS: Gabapentin 100 MG CAPSULE PO SCH ×3 (09:58→20:13)
[2022-04-22] MEDS ORDERED: CLEAR EYES NATURAL TEARS 15 ML BOTTLE BOTH EYES PRN (13:55)
[2022-04-22] MEDS ORDERED: *HR* Rivaroxaban 10 MG TABLET PO SCH (17:00)
[2022-04-22] MEDS: *HR* Rivaroxaban 10 MG TABLET PO SCH (18:44)
[2022-04-22] MEDS ORDERED: Melatonin 3 MG TABLET PO SCH (21:00)
[2022-04-22] MEDS ORDERED: levoFLOXacin 500 MG/100 ML 500 MG/100 ML BAG IVPB SCH (21:00)
[2022-04-23 03:37] LABS: Basophils # 0.1 K/mcL (0.0-0.2); Basophils % 0.8 %; Eosinophils # 0.6 K/mcL (0.0-0.6); Eosinophils % 7.8 %; Hematocrit 31.1 % (35.3-44.9); Hemoglobin 9.9 g/dL (11.5-15.4); Immature Granulocytes % 0.3 % (0-4); Lymphocytes # 1.3 K/mcL (0.6-4.6); Lymphocytes % 16.6 %; Mean Corpuscular HGB Conc 31.8 g/dL (31.6-35.5); Mean Corpuscular Hemoglobin 28.1 pg (28.0-33.3); Mean Corpuscular Volume 88.4 fL (83.0-100.0); Mean Platelet Volume 8.8 fL (9.4-12.4); Monocytes # 0.9 K/mcL (0.0-1.3); Monocytes % 11.6 %; Neutrophils # 4.8 K/mcL (1.6-8.9); Platelet Count 320 K/mcL (140-400); Red Blood Count 3.52 M/mcL (3.82-4.97); Red Cell Distribution Width 15.5 % (11.5-14.5); Segmented Neutrophils % 62.9 %; White Blood Count 7.7 K/mcL (4.3-11.1)
[2022-04-23 03:57] LABS: BUN/Creatinine Ratio 32 (6-26); Blood Urea Nitrogen 17 mg/dL (8-23); Calcium 8.9 mg/dL (8.6-10.3); Carbon Dioxide 28 mEq/L (23-29); Chloride 102 mEq/L (98-107); Glucose 145 mg/dL (70-105); Magnesium 1.8 mg/dL (1.6-2.6); Osmolality,Calculated 286 (280-300); Sodium 136 mEq/L (136-145)
[2022-04-23] MEDS: Norepinephrine 4 MG/254 ML IV.SOLN IVC SCH (07:44)
[2022-04-23] MEDS: Baclofen 10 MG TABLET PO SCH ×3 (09:30→21:07)
[2022-04-23] MEDS: Gabapentin 100 MG CAPSULE PO SCH ×3 (09:30→21:07)
[2022-04-23] MEDS: *HR* Rivaroxaban 10 MG TABLET PO SCH (16:04)
[2022-04-23] MEDS: Melatonin 3 MG TABLET PO SCH (21:07)
[2022-04-24 02:31] LABS: Basophils # 0.1 K/mcL (0.0-0.2); Basophils % 0.7 %; Eosinophils # 0.5 K/mcL (0.0-0.6); Eosinophils % 5.7 %; Hematocrit 31.7 % (35.3-44.9); Hemoglobin 10.2 g/dL (11.5-15.4); Immature Granulocytes % 0.2 % (0-4); Lymphocytes # 1.6 K/mcL (0.6-4.6); Lymphocytes % 17.9 %; Mean Corpuscular HGB Conc 32.2 g/dL (31.6-35.5); Mean Corpuscular Hemoglobin 27.9 pg (28.0-33.3); Mean Corpuscular Volume 86.6 fL (83.0-100.0); Mean Platelet Volume 9.4 fL (9.4-12.4); Monocytes # 0.8 K/mcL (0.0-1.3); Monocytes % 9.3 %; Neutrophils # 5.8 K/mcL (1.6-8.9); Platelet Count 337 K/mcL (140-400); Red Blood Count 3.66 M/mcL (3.82-4.97); Red Cell Distribution Width 15.6 % (11.5-14.5); Segmented Neutrophils % 66.2 %; White Blood Count 8.8 K/mcL (4.3-11.1)
[2022-04-24 02:51] LABS: BUN/Creatinine Ratio 34 (6-26); Blood Urea Nitrogen 15 mg/dL (8-23); Calcium 9.1 mg/dL (8.6-10.3); Carbon Dioxide 25 mEq/L (23-29); Chloride 102 mEq/L (98-107); Glucose 110 mg/dL (70-105); Osmolality,Calculated 283 (280-300); Potassium 4.1 mEq/L (3.5-5.1); Sodium 136 mEq/L (136-145)
[2022-04-24] MEDS: Gabapentin 100 MG CAPSULE PO SCH (08:35)
[2022-04-24] MEDS: Baclofen 10 MG TABLET PO SCH (08:35)
[2022-04-24 10:57] VITALS: BP 118/61; PULSE 85; TEMP 98.2; O2SAT 94
== END 2022-04-24 11:57 | disposition home health service (06) | DRG 698 ==
LOC: 2NNU → SUATTDRO 16:07 → ICNU 17:41 → SUATTDRO 04-21 10:39 → 2ANU 04-21 23:12
PROVIDERS: ADMIT Internal Medicine; ATTEND Family Medicine